=== PATIENT | female | born 1960 | race Hispanic/Latino ===

== ENCOUNTER 2017-08-16 21:03 | Emergency (ER) | payer OTHER ==
[2017-08-16 22:23] LABS: Basophils % (Auto) 0.8 % (0.0-1.8); Eosinophils % (Auto) 3.5 % (0.0-4.3); Hematocrit 38.4 % (30.3-42.9); Hemoglobin 13.2 gm/dl (10.1-14.3); Mean Corpuscular HGB Conc 35 % (30-34); Mean Corpuscular Hemoglobin 33 pg (28-32); Mean Corpuscular Volume 96 fl (79-97); Platelet Count 352 K/mm3 (140-440); Red Blood Count 4.01 M/mm3 (3.65-5.03); Red Cell Distribution Width 13.7 % (13.2-15.2); White Blood Count 10.3 K/mm3 (4.5-11.0)
[2017-08-16 22:28] LABS: Anion Gap 17 mmol/L; BUN/Creatinine Ratio 14; Blood Urea Nitrogen 10 mg/dL (7-17); Calcium 9.2 mg/dL (8.4-10.2); Carbon Dioxide 26 mmol/L (22-30); Chloride 103.2 mmol/L (98-107); Glucose 88 mg/dL (65-100); Potassium 4.2 mmol/L (3.6-5.0); Sodium 142 mmol/L (137-145)
[2017-08-16 22:48] LABS: Bacteria,Urine 1+ /HPF (Negative); Bilirubin,Urine NEG (Negative); Blood,Urine SM (Negative); Ketones,Urine NEG (Negative); Leukocyte Esterase,Urine MOD (Negative); Mucus,Urine FEW /HPF; Nitrite,Urine NEG (Negative); Protein,Urine <15 mg/dL mg/dL (Negative)
[2017-08-16] MEDS ORDERED: ZOFRAN IV ONE (23:41)
[2017-08-16] MEDS ORDERED: TORADOL IV ONE (23:41)
--- NOTE | 2017-08-16 23:45 | Emergency Department Report ---
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 SHE HAS NOT ACTUALLY VOMITED. SHE HAS NO CHEST PAIN, NO FEVER BUT ADMITS TO BODY ACHES. - Related Data Home Medications Medication Instructions Recorded Confirmed Last Taken Aspirin EC [Aspirin Enteric Coated 81 mg PO QDAY 03/01/15 08/10/15 Unknown TAB] Previous Rx's Medication Instructions Recorded Last Taken Type Acetaminophen/Codeine [Tylenol #3] 1 tab PO Q6H PRN #20 tab 11/14/15 Unknown Rx Cyclobenzaprine [Flexeril] 10 mg PO TID PRN #20 tablet 11/14/15 Unknown Rx Naproxen [Naprosyn TAB] 500 mg PO BID #30 tablet 11/14/15 Unknown Rx Azithromycin [Zithromax Z-YUMIKO] 250 mg PO QDAY #6 tablet 03/06/16 Unknown Rx Ibuprofen [Motrin] 800 mg PO Q8HR PRN #10 tablet 03/06/16 Unknown Rx Promethazine /Codeine 5 ml PO Q6H PRN #90 ml 03/06/16 Unknown Rx [Phenergan/Codeine 6.25-10 mg/5Ml] Cyclobenzaprine HCl [Flexeril 5 MG 5 mg PO TID #20 tab 05/18/16 Unknown Rx TAB] Ibuprofen [Motrin 800 MG tab] 800 mg PO Q8HR PRN #20 tablet 05/18/16 Unknown Rx ALBUTEROL Inhaler [Proair] 2 puff IH QID PRN #1 inhalation 08/17/17 Unknown Rx Levofloxacin [Levaquin] 750 mg PO QDAY #7 tablet 08/17/17 Unknown Rx Allergies Allergy/AdvReac Type Severity Reaction Status Date / Time ampicillin Allergy Itching Verified 05/10/15 20:17 ED Review of Systems ROS: Stated complaint: BODYACHES; DIZZINESS Other details as noted in HPI Constitutional: denies: chills, fever Eyes: denies: eye pain, eye discharge, vision change ENT: throat pain. denies: ear pain Respiratory: denies: cough, shortness of breath, wheezing Cardiovascular: denies: chest pain, palpitations Endocrine: no symptoms reported Gastrointestinal: nausea. denies: abdominal pain, vomiting, diarrhea Genitourinary: denies: urgency, dysuria, discharge Musculoskeletal: arthralgia, myalgia. denies: joint swelling Skin: denies: rash, lesions Neurological: denies: headache, weakness, paresthesias Psychiatric: denies: anxiety, depression Hematological/Lymphatic: denies: easy bleeding, easy bruising ED Past Medical Hx - Past Medical History Hx CVA: Yes (2009) Hx Congestive Heart Failure: No Hx Diabetes: No Hx Arthritis: Yes Hx Headaches / Migraines: Yes Hx Psychiatric Treatment: Yes (depression) Hx Asthma: No Hx COPD: No Hx HIV: No - Surgical History Hx Appendectomy: Yes Additional Surgical History: hysterectomy, left ankle surgery, left carotid endarterectomy - Social History Smoking Status: Current Every Day Smoker Substance Use Type: None - Medications Home Medications: Home Medications Medication Instructions Recorded Confirmed Last Taken Type Aspirin EC [Aspirin Enteric Coated 81 mg PO QDAY 03/01/15 08/10/15 Unknown History TAB] Acetaminophen/Codeine [Tylenol #3] 1 tab PO Q6H PRN #20 tab 11/14/15 Unknown Rx Cyclobenzaprine [Flexeril] 10 mg PO TID PRN #20 tablet 11/14/15 Unknown Rx Naproxen [Naprosyn TAB] 500 mg PO BID #30 tablet 11/14/15 Unknown Rx Azithromycin [Zithromax Z-YUMIKO] 250 mg PO QDAY #6 tablet 03/06/16 Unknown Rx Ibuprofen [Motrin] 800 mg PO Q8HR PRN #10 tablet 03/06/16 Unknown Rx Promethazine /Codeine 5 ml PO Q6H PRN #90 ml 03/06/16 Unknown Rx [Phenergan/Codeine 6.25-10 mg/5Ml] Cyclobenzaprine HCl [Flexeril 5 MG 5 mg PO TID #20 tab 05/18/16 Unknown Rx TAB] Ibuprofen [Motrin 800 MG tab] 800 mg PO Q8HR PRN #20 tablet 05/18/16 Unknown Rx ALBUTEROL Inhaler [Proair] 2 puff IH QID PRN #1 inhalation 08/17/17 Unknown Rx Levofloxacin [Levaquin] 750 mg PO QDAY #7 tablet 08/17/17 Unknown Rx ED Physical Exam - General Limitations: No Limitations General appearance: alert, in no apparent distress - Head Head exam: Present: atraumatic, normocephalic - Eye Eye exam: Present: normal appearance - ENT ENT exam: Present: mucous membranes moist - Neck Neck exam: Present: normal inspection, full ROM - Respiratory Respiratory exam: Present: normal lung sounds bilaterally. Absent: respiratory distress, wheezes - Cardiovascular Cardiovascular Exam: Present: regular rate, normal rhythm, normal heart sounds. Absent: systolic murmur, diastolic murmur, rubs, gallop - GI/Abdominal GI/Abdominal exam: Present: soft, normal bowel sounds. Absent: distended, tenderness, guarding - Rectal Rectal exam: Present: deferred - Extremities Exam Extremities exam: Present: normal inspection, full ROM - Back Exam Back exam: Present: normal inspection, full ROM - Neurological Exam Neurological exam: Present: alert, oriented X3, CN II-XII intact - Psychiatric Psychiatric exam: Present: normal affect, normal mood - Skin Skin exam: Present: warm, dry, intact, normal color. Absent: rash ED Course Vital Signs 08/16/17 08/17/17 08/17/17 21:12 00:30 00:31 Temperature 98 F 98 F Pulse Rate 74 98 H Respiratory 18 18 18 Rate Blood Pressure 139/82 Blood Pressure 130/76 [Left] O2 Sat by Pulse 100 96 Oximetry - Reevaluation(s) Reevaluation #1: 08/17/17 01:31 FLU STILL UNCOLLECTED ED Medical Decision Making - Lab Data Result diagrams: 08/16/17 21:29 08/16/17 21:29 - Radiology Data Radiology results: pending (CXR; NEGATIVE), image reviewed Critical care attestation.: If time is entered above; I have spent that time in minutes in the direct care of this critically ill patient, excluding procedure time. ED Disposition Clinical Impression: UTI (urinary tract infection) Acute bronchitis Qualifiers: Bronchitis organism: unspecified organism Qualified Code(s): J20.9 - Acute bronchitis, unspecified Disposition: DC-01 TO HOME OR SELFCARE Is pt being admited?: No Does the pt Need Aspirin: No Condition: Stable Instructions: Urinary Tract Infection in Women (ED), Acute Bronchitis (ED) Prescriptions: ALBUTEROL Inhaler [Proair] 2 puff IH QID PRN #1 inhalation PRN Reason: Shortness Of Breath Levofloxacin [Levaquin] 750 mg PO QDAY #7 tablet Referrals: PRIMARY CARE, [Primary Care Provider] - 3-5 Days [facility] [Outside] - 3-5 Days Time of Disposition: 02:20
[2017-08-17 00:53] LABS: Creatine Kinase MB 1.7 ng/mL (0.0-4.0)
[2017-08-17 00:54] LABS: Creatine Kinase 208 units/L (30-135)
[2017-08-17 02:36] VITALS: BP 137/89
--- NOTE | 2017-08-17 03:02 | XRay Report ---
FINAL REPORT EXAM: XR CHEST ROUTINE 2V HISTORY: COUGHING?PNEUMONIA TECHNIQUE: PA and lateral views of the chest were submitted. There are no previous studies available for comparison. FINDINGS: Heart size and mediastinum appear normal. The lungs are clear. Pleural fluid is not seen. The bones soft tissues are well maintained. IMPRESSION: No active chest disease.
== END 2017-08-17 02:10 | disposition home or self-care (01) ==
LOC: ED 21:03
DX: N39.0 Urinary tract infection, site not specified (principal); J40 Bronchitis, not specified as acute or chronic; M19.90 Unspecified osteoarthritis, unspecified site; G43.909 Migraine, unspecified, not intractable, without status migrainosus; F17.200 Nicotine dependence, unspecified, uncomplicated; Z86.73 Personal history of transient ischemic attack (TIA), and cerebral infarction without residual deficits; Z79.82 Long term (current) use of aspirin; Z88.1 Allergy status to other antibiotic agents
CPT/HCPCS: 36415; 71020; 80048; 81001; 82550; 82553; 84484; 85025; 87400; 96374; 96375; 99284; J1885; J2405

== ENCOUNTER 2017-09-01 12:50 | Emergency (ER) | payer OTHER ==
[2017-09-01 13:54] VITALS: BP 136/82
[2017-09-01 15:00] LABS: Urine Drugs of Abuse Note Disclamer
[2017-09-01 15:07] LABS: Bacteria,Urine 1+ /HPF (Negative)
[2017-09-01 15:13] LABS: Bilirubin,Urine NEG (Negative); Blood,Urine NEG (Negative); Ketones,Urine NEG (Negative); Leukocyte Esterase,Urine SM (Negative); Nitrite,Urine NEG (Negative); Protein,Urine <15 mg/dL mg/dL (Negative); Urobilinogen,Urine < 2.0 mg/dL (<2.0)
[2017-09-01] MEDS ORDERED: TORADOL IM ONE (17:13)
--- NOTE | 2017-09-01 17:13 | Emergency Department Report ---
ED General Adult HPI - General Chief complaint: Pain General Stated complaint: KNEE PAIN Time Seen by Provider: 09/01/17 16:13 Source: patient Mode of arrival: Ambulatory Limitations: No Limitations - History of Present Illness Initial comments: Patient here complaining in that she has continued ongoing chronic pain to her back, neck, elbows, legs, knees with occasional tingling . Patient has chronic neuropathy and she says she has very bad arthritis with osteoporosis. She said she started having pain a couple days it's been getting worse pain is 10 out of 10 generalized to her joints. Denies any trauma. Patient was here on 2016 and treated for urinary tract infection which she says she took all the medication that she was given for 7 days. Denies any urinary burning, frequency or urgency. Denies any nausea or vomiting. Denies any fever or chills. Pain is 10 out of 10 to joints and aching. Better with resting. Worse with moving around. She has no fever or chills. MD Complaint: generalized aching Onset/Timin -: days(s) Location: back, left, right, upper extremity, lower extremity Radiation: non-radiation Severity scale (0 -10): 10 Quality: aching Consistency: constant Improves with: immobilization, rest Worsens with: movement Associated Symptoms: denies: confusion, chest pain, cough, diaphoresis, fever/ chills, headaches, loss of appetite, malaise, nausea/vomiting, rash, seizure, shortness of breath, syncope, weakness Treatments Prior to Arrival: none - Related Data Home Medications Medication Instructions Recorded Confirmed Last Taken Aspirin EC [Aspirin Enteric Coated 81 mg PO QDAY 03/01/15 08/10/15 Unknown TAB] Previous Rx's Medication Instructions Recorded Last Taken Type Acetaminophen/Codeine [Tylenol #3] 1 tab PO Q6H PRN #20 tab 11/14/15 Unknown Rx Cyclobenzaprine [Flexeril] 10 mg PO TID PRN #20 tablet 11/14/15 Unknown Rx Naproxen [Naprosyn TAB] 500 mg PO BID #30 tablet 11/14/15 Unknown Rx Azithromycin [Zithromax Z-YUMIKO] 250 mg PO QDAY #6 tablet 03/06/16 Unknown Rx Ibuprofen [Motrin] 800 mg PO Q8HR PRN #10 tablet 03/06/16 Unknown Rx Promethazine /Codeine 5 ml PO Q6H PRN #90 ml 03/06/16 Unknown Rx [Phenergan/Codeine 6.25-10 mg/5Ml] Cyclobenzaprine HCl [Flexeril 5 MG 5 mg PO TID #20 tab 05/18/16 Unknown Rx TAB] Ibuprofen [Motrin 800 MG tab] 800 mg PO Q8HR PRN #20 tablet 05/18/16 Unknown Rx ALBUTEROL Inhaler [Proair] 2 puff IH QID PRN #1 inhalation 08/17/17 Unknown Rx Levofloxacin [Levaquin] 750 mg PO QDAY #7 tablet 08/17/17 Unknown Rx Nitrofurantoin Monohyd/M-Cryst 100 mg PO Q12H 3 Days #6 capsule 09/01/17 Unknown Rx [Macrobid 100 mg Capsule] traMADol [Ultram] 50 mg PO Q6HR PRN 3 Days #12 tablet 09/01/17 Unknown Rx Allergies Allergy/AdvReac Type Severity Reaction Status Date / Time ampicillin Allergy Itching Verified 05/10/15 20:17 ED Review of Systems ROS: Stated complaint: KNEE PAIN Other details as noted in HPI Comment: All other systems reviewed and negative Constitutional: no symptoms reported Respiratory: no symptoms reported Cardiovascular: denies: chest pain, palpitations, dyspnea on exertion, orthopnea , edema, syncope, paroxysmal nocturnal dyspnea Endocrine: no symptoms reported Gastrointestinal: denies: abdominal pain, nausea, vomiting, diarrhea Genitourinary: denies: urgency, dysuria, frequency, hematuria, discharge, abnormal menses Musculoskeletal: back pain, arthralgia. denies: joint swelling, myalgia Skin: denies: rash, lesions, pruritus Neurological: paresthesias. denies: headache, weakness, numbness, confusion, abnormal gait, vertigo ED Past Medical Hx - Past Medical History Previous Medical History?: Yes Hx CVA: Yes (2009) Hx Congestive Heart Failure: No Hx Diabetes: No Hx Arthritis: Yes Hx Headaches / Migraines: Yes Hx Psychiatric Treatment: Yes (depression) Hx Asthma: No Hx COPD: No Hx HIV: No - Surgical History Past Surgical History?: Yes Hx Appendectomy: Yes Additional Surgical History: hysterectomy, left ankle surgery, left carotid endarterectomy - Family History Family history: hypertension - Social History Smoking Status: Current Every Day Smoker Substance Use Type: None - Medications Home Medications: Home Medications Medication Instructions Recorded Confirmed Last Taken Type Aspirin EC [Aspirin Enteric Coated 81 mg PO QDAY 03/01/15 08/10/15 Unknown History TAB] Acetaminophen/Codeine [Tylenol #3] 1 tab PO Q6H PRN #20 tab 11/14/15 Unknown Rx Cyclobenzaprine [Flexeril] 10 mg PO TID PRN #20 tablet 11/14/15 Unknown Rx Naproxen [Naprosyn TAB] 500 mg PO BID #30 tablet 11/14/15 Unknown Rx Azithromycin [Zithromax Z-YUMIKO] 250 mg PO QDAY #6 tablet 03/06/16 Unknown Rx Ibuprofen [Motrin] 800 mg PO Q8HR PRN #10 tablet 03/06/16 Unknown Rx Promethazine /Codeine 5 ml PO Q6H PRN #90 ml 03/06/16 Unknown Rx [Phenergan/Codeine 6.25-10 mg/5Ml] Cyclobenzaprine HCl [Flexeril 5 MG 5 mg PO TID #20 tab 05/18/16 Unknown Rx TAB] Ibuprofen [Motrin 800 MG tab] 800 mg PO Q8HR PRN #20 tablet 05/18/16 Unknown Rx ALBUTEROL Inhaler [Proair] 2 puff IH QID PRN #1 inhalation 08/17/17 Unknown Rx Levofloxacin [Levaquin] 750 mg PO QDAY #7 tablet 08/17/17 Unknown Rx Nitrofurantoin Monohyd/M-Cryst 100 mg PO Q12H 3 Days #6 capsule 09/01/17 Unknown Rx [Macrobid 100 mg Capsule] traMADol [Ultram] 50 mg PO Q6HR PRN 3 Days #12 tablet 09/01/17 Unknown Rx ED Physical Exam - General Limitations: No Limitations General appearance: alert, in no apparent distress - Head Head exam: Present: atraumatic, normocephalic, normal inspection - Eye Eye exam: Present: normal appearance, PERRL, EOMI. Absent: periorbital swelling , periorbital tenderness Pupils: Present: normal accommodation - ENT ENT exam: Present: normal exam, normal orophraynx, mucous membranes moist - Neck Neck exam: Present: normal inspection, full ROM, other (no C-spine tenderness). Absent: tenderness, meningismus, lymphadenopathy, thyromegaly - Respiratory Respiratory exam: Present: normal lung sounds bilaterally. Absent: respiratory distress, chest wall tenderness, accessory muscle use - Cardiovascular Cardiovascular Exam: Present: regular rate, normal rhythm, normal heart sounds. Absent: systolic murmur, diastolic murmur - GI/Abdominal GI/Abdominal exam: Present: soft, normal bowel sounds. Absent: distended, tenderness, guarding, rebound, rigid, organomegaly, mass, bruit, pulsatile mass , hernia - Extremities Exam Extremities exam: Present: normal inspection, full ROM, normal capillary refill , other (MSK: Strength 5/5 in all extremities. No joint deformity or crepitus. Normal inspection. Full range of motion to all extremities). Absent: tenderness, pedal edema, joint swelling, calf tenderness - Back Exam Back exam: Present: normal inspection, full ROM, other (patient ambulates without any difficulties). Absent: tenderness, CVA tenderness (R), CVA tenderness (L), muscle spasm, paraspinal tenderness, vertebral tenderness, rash noted - Neurological Exam Neurological exam: Present: alert, oriented X3, normal gait, reflexes normal. Absent: motor sensory deficit - Psychiatric Psychiatric exam: Present: normal affect, normal mood - Skin Skin exam: Present: warm, dry, intact, normal color. Absent: rash ED Course Vital Signs 09/01/17 13:49 Temperature 97.7 F Pulse Rate 87 Respiratory 18 Rate Blood Pressure 136/82 O2 Sat by Pulse 99 Oximetry - Reevaluation(s) Reevaluation #1: 09/01/17 18:00 given Toradol 30 mg IM in emergency room for generalized joint pain. Her family members here so she will be given additional Percocet 5/325 2 tablets. ED Medical Decision Making - Lab Data Lab Results 09/01/17 09/01/17 Range/Units 14:39 14:39 Urine Color Yellow (Yellow) Urine Turbidity Clear (Clear) Urine pH 6.0 (5.0-7.0) Ur Specific [place] 1.014 (1.003-1.030) Urine Protein <15 mg/dl (Negative) mg/dL Urine Glucose (UA) Neg (Negative) mg/dL Urine Ketones Neg (Negative) mg/dL Urine Blood Neg (Negative) Urine Nitrite Neg (Negative) Ur Reducing Substances Not Reportable Urine Bilirubin Neg (Negative) Urine Ictotest Not Reportable Urine Urobilinogen < 2.0 (<2.0) mg/dL Ur Leukocyte Esterase Sm (Negative) Urine WBC (Auto) 3.0 (0.0-6.0) /HPF Urine RBC (Auto) 1.0 (0.0-6.0) /HPF U Epithel Cells (Auto) 3.0 (0-13.0) /HPF Urine Bacteria (Auto) 1+ (Negative) /HPF Urine Opiates Screen Presumptive negative Urine Methadone Screen Presumptive negative Ur Barbiturates Screen Presumptive negative Ur Phencyclidine Scrn Presumptive negative Ur Amphetamines Screen Presumptive negative U Benzodiazepines Scrn Presumptive negative Urine Cocaine Screen Presumptive negative U Marijuana (THC) Screen Presumptive negative Drugs of Abuse Note Disclamer Urine culture pending - Medical Decision Making ED course: For management of her chronic pain. She says she has chronic arthritis and she is having a flareup and that she has osteoporosis. She was treated here on 08/17/2017 for urinary tract infection and she is asymptomatic at present but her urine shows that she has some bacteria and trace amount of leukocyte Estrace. Based on this I will treat her with Macrobid 3 days and I gave her Toradol 30 mg IM in emergency room. Her family member came and I gave her additional Percocet 5/325 2 tablets emergency room and discharged home with prescription for Ultram and Macrobid to follow up with her primary care physician to manage her chronic medical problems. This was discussed patient. I gave her results of urinalysis and told her that culture was sent. Patient discharged home with her family in stable condition and discharged home and referred to [facility] at her request for primary care. Critical care attestation.: If time is entered above; I have spent that time in minutes in the direct care of this critically ill patient, excluding procedure time. ED Disposition Clinical Impression: Acute cystitis without hematuria, Arthralgia of multiple sites, bilateral Disposition: DC-01 TO HOME OR SELFCARE Is pt being admited?: No Does the pt Need Aspirin: No Condition: Stable Instructions: Chronic Pain (ED), Osteoarthritis (ED), Urinary Tract Infection in Children (ED) Additional Instructions: follow-up with outside Medical Center as instructed Please increase your fluid intake Take Ultram for pain but please do not drive or operate heavy machinery as this medication causes drowsiness Take Macrobid for small bladder infection Prescriptions: Nitrofurantoin Monohyd/M-Cryst [Macrobid 100 mg Capsule] 100 mg PO Q12H 3 Days # 6 capsule traMADol [Ultram] 50 mg PO Q6HR PRN 3 Days #12 tablet PRN Reason: Pain Referrals: PRIMARY CARE,MD [Primary Care Provider] - 2-3 Days [facility] [Outside] - 2-3 Days Forms: Accompanied Note, Work/School Release Form(ED)
[2017-09-01] MEDS ORDERED: PERCOCET 5/325 PO ONE (18:19)
== END 2017-09-01 19:08 | disposition home or self-care (01) ==
LOC: ED 12:50
DX: N30.00 Acute cystitis without hematuria (principal); M25.562 Pain in left knee; M25.561 Pain in right knee; M25.522 Pain in left elbow; M25.521 Pain in right elbow; E11.40 Type 2 diabetes mellitus with diabetic neuropathy, unspecified; M19.90 Unspecified osteoarthritis, unspecified site; G43.909 Migraine, unspecified, not intractable, without status migrainosus; F17.200 Nicotine dependence, unspecified, uncomplicated; Z79.82 Long term (current) use of aspirin; Z86.73 Personal history of transient ischemic attack (TIA), and cerebral infarction without residual deficits; Z88.1 Allergy status to other antibiotic agents
CPT/HCPCS: 80307; 81001; 96372; 99283; J1885

== ENCOUNTER 2018-05-14 12:49 | Emergency (ER) | payer SELFPAY ==
[2018-05-14] MEDS ORDERED: TESSALON PERLES PO ONE (15:38)
--- NOTE | 2018-05-14 16:45 | Emergency Department Report ---
- General Chief Complaint: Upper Respiratory Infection Stated Complaint: SNEEZING,COUGHING,CHEST PAIN Time Seen by Provider: 05/14/18 15:38 Source: patient Mode of arrival: Ambulatory Limitations: No Limitations - History of Present Illness Initial Comments: This is a 57-year-old female nontoxic, well nourished in appearance, no acute signs of distress presents to the ED with c/o of productive cough, rhinorrhea, nasal congestion x3 days. Patient describes productive cough as yellow mucus production. Patient denies any sick contact. Patient denies any recent travels , long car, recent hospital stays. Patient denies any calf pain or calf tenderness. Patient denies any chest pain, short of breath, fever, chills, nausea, vomiting, hemoptysis, numbness, tingling, headache or stiff neck. Patient stated allergies to ampicillin. PMH includes DM, HTN. MD Complaint: cough, sore throat, rhinorrhea, nasal congestion -: days(s) (3) Severity: mild Consistency: constant Improves With: nothing Worsens With: nothing Associated Symptoms: rhinorrhea, nasal congestion, cough. denies: fever, chills , myalgias, diaphoresis, headache, sore throat, stiff neck, chest pain, shortness of breath, abdominal pain, nausea, vomiting, diarrhea, dysuria, rash, confusion, right sweats, weight loss, epistaxis, hoarseness, ear pain - Related Data Home Medications Medication Instructions Recorded Confirmed Last Taken Aspirin EC [Aspirin Enteric Coated 81 mg PO QDAY 03/01/15 08/10/15 Unknown TAB] Previous Rx's Medication Instructions Recorded Last Taken Type Acetaminophen/Codeine [Tylenol #3] 1 tab PO Q6H PRN #20 tab 11/14/15 Unknown Rx Cyclobenzaprine [Flexeril] 10 mg PO TID PRN #20 tablet 11/14/15 Unknown Rx Naproxen [Naprosyn TAB] 500 mg PO BID #30 tablet 11/14/15 Unknown Rx Azithromycin [Zithromax Z-YUMIKO] 250 mg PO QDAY #6 tablet 03/06/16 Unknown Rx Ibuprofen [Motrin] 800 mg PO Q8HR PRN #10 tablet 03/06/16 Unknown Rx Promethazine /Codeine 5 ml PO Q6H PRN #90 ml 03/06/16 Unknown Rx [Phenergan/Codeine 6.25-10 mg/5Ml] Cyclobenzaprine HCl [Flexeril 5 MG 5 mg PO TID #20 tab 05/18/16 Unknown Rx TAB] Ibuprofen [Motrin 800 MG tab] 800 mg PO Q8HR PRN #20 tablet 05/18/16 Unknown Rx ALBUTEROL Inhaler [Proair] 2 puff IH QID PRN #1 inhalation 08/17/17 Unknown Rx levoFLOXacin [Levaquin] 750 mg PO QDAY #7 tablet 08/17/17 Unknown Rx Nitrofurantoin Monohyd/M-Cryst 100 mg PO Q12H 3 Days #6 capsule 09/01/17 Unknown Rx [Macrobid 100 mg Capsule] traMADol [Ultram] 50 mg PO Q6HR PRN 3 Days #12 tablet 09/01/17 Unknown Rx Azithromycin [Zithromax Z-YUMIKO] 250 mg PO DAILY #6 tablet 05/14/18 Unknown Rx Benzonatate [Tessalon Perle] 100 mg PO Q8H PRN #20 capsule 05/14/18 Unknown Rx Loratadine [Claritin] 10 mg PO DAILY #30 tablet 05/14/18 Unknown Rx Allergies Allergy/AdvReac Type Severity Reaction Status Date / Time ampicillin Allergy Itching Verified 05/10/15 20:17 ED Review of Systems ROS: Stated complaint: SNEEZING,COUGHING,CHEST PAIN Other details as noted in HPI Constitutional: denies: chills, fever Eyes: denies: eye pain, eye discharge, vision change ENT: denies: ear pain, throat pain Respiratory: cough. denies: shortness of breath, wheezing Cardiovascular: denies: chest pain, palpitations Endocrine: no symptoms reported Gastrointestinal: denies: abdominal pain, nausea, diarrhea Genitourinary: denies: urgency, dysuria, discharge Musculoskeletal: denies: back pain, joint swelling, arthralgia Skin: denies: rash, lesions Neurological: denies: headache, weakness, paresthesias Psychiatric: denies: anxiety, depression Hematological/Lymphatic: denies: easy bleeding, easy bruising ED Past Medical Hx - Past Medical History Hx CVA: Yes (2009) Hx Congestive Heart Failure: No Hx Diabetes: No Hx Arthritis: Yes Hx Headaches / Migraines: Yes Hx Psychiatric Treatment: Yes (depression) Hx Asthma: No Hx COPD: No Hx HIV: No - Surgical History Hx Appendectomy: Yes Additional Surgical History: hysterectomy, left ankle surgery, left carotid endarterectomy - Social History Smoking Status: Current Every Day Smoker Substance Use Type: None - Medications Home Medications: Home Medications Medication Instructions Recorded Confirmed Last Taken Type Aspirin EC [Aspirin Enteric Coated 81 mg PO QDAY 03/01/15 08/10/15 Unknown History TAB] Acetaminophen/Codeine [Tylenol #3] 1 tab PO Q6H PRN #20 tab 11/14/15 Unknown Rx Cyclobenzaprine [Flexeril] 10 mg PO TID PRN #20 tablet 11/14/15 Unknown Rx Naproxen [Naprosyn TAB] 500 mg PO BID #30 tablet 11/14/15 Unknown Rx Azithromycin [Zithromax Z-YUMIKO] 250 mg PO QDAY #6 tablet 03/06/16 Unknown Rx Ibuprofen [Motrin] 800 mg PO Q8HR PRN #10 tablet 03/06/16 Unknown Rx Promethazine /Codeine 5 ml PO Q6H PRN #90 ml 03/06/16 Unknown Rx [Phenergan/Codeine 6.25-10 mg/5Ml] Cyclobenzaprine HCl [Flexeril 5 MG 5 mg PO TID #20 tab 05/18/16 Unknown Rx TAB] Ibuprofen [Motrin 800 MG tab] 800 mg PO Q8HR PRN #20 tablet 05/18/16 Unknown Rx ALBUTEROL Inhaler [Proair] 2 puff IH QID PRN #1 inhalation 08/17/17 Unknown Rx levoFLOXacin [Levaquin] 750 mg PO QDAY #7 tablet 08/17/17 Unknown Rx Nitrofurantoin Monohyd/M-Cryst 100 mg PO Q12H 3 Days #6 capsule 09/01/17 Unknown Rx [Macrobid 100 mg Capsule] traMADol [Ultram] 50 mg PO Q6HR PRN 3 Days #12 tablet 09/01/17 Unknown Rx Azithromycin [Zithromax Z-YUMIKO] 250 mg PO DAILY #6 tablet 05/14/18 Unknown Rx Benzonatate [Tessalon Perle] 100 mg PO Q8H PRN #20 capsule 05/14/18 Unknown Rx Loratadine [Claritin] 10 mg PO DAILY #30 tablet 05/14/18 Unknown Rx ED Physical Exam - General Limitations: No Limitations General appearance: alert, in no apparent distress - Head Head exam: Present: atraumatic, normocephalic - Eye Eye exam: Present: normal appearance Pupils: Present: normal accommodation - ENT ENT exam: Present: normal exam, mucous membranes moist - Neck Neck exam: Present: normal inspection, full ROM. Absent: tenderness, meningismus, lymphadenopathy - Respiratory Respiratory exam: Present: normal lung sounds bilaterally. Absent: respiratory distress, wheezes, rales, rhonchi, stridor, chest wall tenderness, accessory muscle use, decreased breath sounds, prolonged expiratory - Cardiovascular Cardiovascular Exam: Present: regular rate, normal rhythm, normal heart sounds. Absent: bradycardia, tachycardia, irregular rhythm, systolic murmur, diastolic murmur, rubs, gallop - GI/Abdominal GI/Abdominal exam: Present: soft, normal bowel sounds. Absent: distended, tenderness, guarding, rebound, rigid, diminished bowel sounds - Extremities Exam Extremities exam: Present: normal inspection, full ROM, normal capillary refill. Absent: tenderness - Back Exam Back exam: Present: normal inspection, full ROM. Absent: tenderness, CVA tenderness (R), CVA tenderness (L), muscle spasm, paraspinal tenderness, vertebral tenderness, rash noted - Neurological Exam Neurological exam: Present: alert, oriented X3, normal gait - Psychiatric Psychiatric exam: Present: normal affect, normal mood - Skin Skin exam: Present: warm, dry, intact, normal color. Absent: rash ED Course Vital Signs 05/14/18 13:19 Temperature 97.9 F Pulse Rate 82 Respiratory 16 Rate Blood Pressure 156/92 O2 Sat by Pulse 96 Oximetry - Reevaluation(s) Reevaluation #1: 05/14/18 16:43 Patient is speaking in full sentences with no signs of distress noted. ED Medical Decision Making - Medical Decision Making This is a 57-year-old female that presents with bronchitis. Patient is stable and was examined by me. Chest x-ray has been obtained and dictated by radiologist with normal exam. Patient is notified of x-ray results with no questions noted. Due to patient having symptoms of upper respiratory infection and worsening I will treat patient empirically with zpak. Patient was instructed to increase hydration, rest and take Motrin for fever episodes. Patient received tesslone perrls in the ED. Vitals stable. Patient is nonfebrile and normal heart rate. Patient was instructed Follow-up with a primary care doctor in 3-5 days or if symptoms worsen and continue return to emergency room as soon as possible. At time time of discharge, the patient does not seem toxic or ill in appearance. No acute signs of distress noted. Patient agrees to discharge treatment plan of care. No further questions noted by the patient. Critical care attestation.: If time is entered above; I have spent that time in minutes in the direct care of this critically ill patient, excluding procedure time. ED Disposition Clinical Impression: Bronchitis Disposition: DC- TO HOME OR SELFCARE Is pt being admited?: No Does the pt Need Aspirin: No Condition: Stable Instructions: Acute Bronchitis (ED) Additional Instructions: Follow-up with a primary care doctor in 3-5 days or if symptoms worsen and continue return to emergency room as soon as possible. Prescriptions: Azithromycin [Zithromax Z-YUMIKO] 250 mg PO DAILY #6 tablet Benzonatate [Tessalon Perle] 100 mg PO Q8H PRN #20 capsule PRN Reason: Cough Loratadine [Claritin] 10 mg PO DAILY #30 tablet Referrals: PRIMARY MD NANCY [Primary Care Provider] - 3-5 Days SHRUTHI MICHELE MD [Staff Physician] - 3-5 Days [facility] [Outside] - 3-5 Days [facility] [Outside] - 3-5 Days Forms: Work/School Release Form(ED)
--- NOTE | 2018-05-14 17:36 | XRay Report ---
FINAL REPORT EXAM: XR CHEST ROUTINE 2V HISTORY: cough TECHNIQUE: 2 view examination of the chest PRIORS: 08/16/2017 FINDINGS: Atherosclerotic change in the thoracic aorta. Degenerative change in the thoracic spine. There is no visible pulmonary consolidation, pleural effusion, or pneumothorax. Cardiac silhouette size is normal without vascular congestion. IMPRESSION: No evidence of acute cardiopulmonary disease
[2018-05-14 17:59] VITALS: BP 157/87
== END 2018-05-14 17:58 | disposition home or self-care (01) ==
LOC: ED 12:49
DX: J40 Bronchitis, not specified as acute or chronic (principal); M19.90 Unspecified osteoarthritis, unspecified site; G43.909 Migraine, unspecified, not intractable, without status migrainosus; F32.9 Major depressive disorder, single episode, unspecified; F17.200 Nicotine dependence, unspecified, uncomplicated; Z88.0 Allergy status to penicillin; Z86.73 Personal history of transient ischemic attack (TIA), and cerebral infarction without residual deficits; Z90.710 Acquired absence of both cervix and uterus
CPT/HCPCS: 71046; 93005; 93010; 99283

== ENCOUNTER 2018-11-17 19:25 | Emergency (ER) | payer OTHER ==
[2018-11-17 20:24] VITALS: BP 104/71
--- NOTE | 2018-11-17 20:24 | Emergency Department Report ---
Blank Doc - Documentation Documentation: This is a 57-year-old female that presents with right sided tongue pain. Stated cut herself by a broken tooth. This initial assessment diagnostic orders/clinical plan/treatment(s) is/are subject to change based on patient's health status, clinical progression and re-assessment by fellow clinical providers in the ED. Further treatment and workup at subsequent clinical providers discretion. Patient/guardians urged not to elope from ED s their condition may be serious if not clinically assessed and managed. Initial orders include: 1-Patient sent to [facility] for further evaluation and treatment
--- NOTE | 2018-11-18 01:42 | Emergency Department Report ---
ED ENT HPI - General Chief complaint: Dental/Oral Stated complaint: TOOTHACHE Time Seen by Provider: 11/17/18 20:22 Source: patient Mode of arrival: Ambulatory Limitations: No Limitations - History of Present Illness Initial comments: 57-year-old female presents to the emergency room for bottom right tooth chipped and patient is now having pain to the tongue where it has been rubbing against her tooth. Patient reports that she's tried using [id number] benzocaine liquid oral gel mouthwash and ibuprofen without much relief. Patient reports a past medical history arthritis CVA in 2009 depression. MD complaint: other (sore tongue) -: days(s) (3) Location: other (tongue) Severity: severe Severity scale (0 -10): 10 Quality: burning, constant Consistency: constant Improves with: none Worsens with: swallowing, eating - Related Data Home Medications Medication Instructions Recorded Confirmed Last Taken Aspirin EC [Aspirin Enteric Coated 81 mg PO QDAY 03/01/15 08/10/15 Unknown TAB] Previous Rx's Medication Instructions Recorded Last Taken Type Acetaminophen/Codeine [Tylenol #3] 1 tab PO Q6H PRN #20 tab 11/14/15 Unknown Rx Cyclobenzaprine [Flexeril] 10 mg PO TID PRN #20 tablet 11/14/15 Unknown Rx Naproxen [Naprosyn TAB] 500 mg PO BID #30 tablet 11/14/15 Unknown Rx Azithromycin [Zithromax Z-YUMIKO] 250 mg PO QDAY #6 tablet 03/06/16 Unknown Rx Ibuprofen [Motrin] 800 mg PO Q8HR PRN #10 tablet 03/06/16 Unknown Rx Promethazine /Codeine 5 ml PO Q6H PRN #90 ml 03/06/16 Unknown Rx [Phenergan/Codeine 6.25-10 mg/5Ml] Cyclobenzaprine HCl [Flexeril 5 MG 5 mg PO TID #20 tab 05/18/16 Unknown Rx TAB] Ibuprofen [Motrin 800 MG tab] 800 mg PO Q8HR PRN #20 tablet 05/18/16 Unknown Rx ALBUTEROL Inhaler (OR & NICU) 2 puff IH QID PRN #1 inhalation 08/17/17 Unknown Rx [Proair] levoFLOXacin [Levaquin] 750 mg PO QDAY #7 tablet 08/17/17 Unknown Rx Nitrofurantoin Monohyd/M-Cryst 100 mg PO Q12H 3 Days #6 capsule 09/01/17 Unknown Rx [Macrobid 100 mg Capsule] Azithromycin [Zithromax Z-YUMIKO] 250 mg PO DAILY #6 tablet 05/14/18 Unknown Rx Benzonatate [Tessalon Perle] 100 mg PO Q8H PRN #20 capsule 05/14/18 Unknown Rx Loratadine [Claritin] 10 mg PO DAILY #30 tablet 05/14/18 Unknown Rx Ibuprofen [Motrin] 600 mg PO Q8H PRN #20 tablet 08/04/18 Unknown Rx traMADol [Ultram 50 MG tab] 50 mg PO Q6HR PRN 3 Days #12 tablet 11/18/18 Unknown Rx Allergies Allergy/AdvReac Type Severity Reaction Status Date / Time ampicillin Allergy Itching Verified 05/10/15 20:17 ED Dental HPI - General Chief complaint: Dental/Oral Stated complaint: TOOTHACHE Time Seen by Provider: 11/17/18 20:22 Source: patient Mode of arrival: Ambulatory Limitations: No Limitations - Related Data Home Medications Medication Instructions Recorded Confirmed Last Taken Aspirin EC [Aspirin Enteric Coated 81 mg PO QDAY 03/01/15 08/10/15 Unknown TAB] Previous Rx's Medication Instructions Recorded Last Taken Type Acetaminophen/Codeine [Tylenol #3] 1 tab PO Q6H PRN #20 tab 11/14/15 Unknown Rx Cyclobenzaprine [Flexeril] 10 mg PO TID PRN #20 tablet 11/14/15 Unknown Rx Naproxen [Naprosyn TAB] 500 mg PO BID #30 tablet 11/14/15 Unknown Rx Azithromycin [Zithromax Z-YUMIKO] 250 mg PO QDAY #6 tablet 03/06/16 Unknown Rx Ibuprofen [Motrin] 800 mg PO Q8HR PRN #10 tablet 03/06/16 Unknown Rx Promethazine /Codeine 5 ml PO Q6H PRN #90 ml 03/06/16 Unknown Rx [Phenergan/Codeine 6.25-10 mg/5Ml] Cyclobenzaprine HCl [Flexeril 5 MG 5 mg PO TID #20 tab 05/18/16 Unknown Rx TAB] Ibuprofen [Motrin 800 MG tab] 800 mg PO Q8HR PRN #20 tablet 05/18/16 Unknown Rx ALBUTEROL Inhaler (OR & NICU) 2 puff IH QID PRN #1 inhalation 08/17/17 Unknown Rx [Proair] levoFLOXacin [Levaquin] 750 mg PO QDAY #7 tablet 08/17/17 Unknown Rx Nitrofurantoin Monohyd/M-Cryst 100 mg PO Q12H 3 Days #6 capsule 09/01/17 Unknown Rx [Macrobid 100 mg Capsule] Azithromycin [Zithromax Z-YUMIKO] 250 mg PO DAILY #6 tablet 05/14/18 Unknown Rx Benzonatate [Tessalon Perle] 100 mg PO Q8H PRN #20 capsule 05/14/18 Unknown Rx Loratadine [Claritin] 10 mg PO DAILY #30 tablet 05/14/18 Unknown Rx Ibuprofen [Motrin] 600 mg PO Q8H PRN #20 tablet 08/04/18 Unknown Rx traMADol [Ultram 50 MG tab] 50 mg PO Q6HR PRN 3 Days #12 tablet 11/18/18 Unknown Rx Allergies Allergy/AdvReac Type Severity Reaction Status Date / Time ampicillin Allergy Itching Verified 05/10/15 20:17 ED Review of Systems ROS: Stated complaint: TOOTHACHE Other details as noted in HPI Comment: All other systems reviewed and negative Constitutional: denies: chills, fever Eyes: denies: eye pain, eye discharge, vision change ENT: other (tongue pain) ED Past Medical Hx - Past Medical History Hx CVA: Yes (2009) Hx Congestive Heart Failure: No Hx Diabetes: No Hx Arthritis: Yes Hx Headaches / Migraines: Yes Hx Psychiatric Treatment: Yes (depression) Hx Asthma: No Hx COPD: No Hx HIV: No - Surgical History Hx Appendectomy: Yes Additional Surgical History: hysterectomy, left ankle surgery, left carotid endarterectomy - Social History Smoking Status: Current Every Day Smoker Substance Use Type: None - Medications Home Medications: Home Medications Medication Instructions Recorded Confirmed Last Taken Type Aspirin EC [Aspirin Enteric Coated 81 mg PO QDAY 03/01/15 08/10/15 Unknown History TAB] Acetaminophen/Codeine [Tylenol #3] 1 tab PO Q6H PRN #20 tab 11/14/15 Unknown Rx Cyclobenzaprine [Flexeril] 10 mg PO TID PRN #20 tablet 11/14/15 Unknown Rx Naproxen [Naprosyn TAB] 500 mg PO BID #30 tablet 11/14/15 Unknown Rx Azithromycin [Zithromax Z-YUMIKO] 250 mg PO QDAY #6 tablet 03/06/16 Unknown Rx Ibuprofen [Motrin] 800 mg PO Q8HR PRN #10 tablet 03/06/16 Unknown Rx Promethazine /Codeine 5 ml PO Q6H PRN #90 ml 03/06/16 Unknown Rx [Phenergan/Codeine 6.25-10 mg/5Ml] Cyclobenzaprine HCl [Flexeril 5 MG 5 mg PO TID #20 tab 05/18/16 Unknown Rx TAB] Ibuprofen [Motrin 800 MG tab] 800 mg PO Q8HR PRN #20 tablet 05/18/16 Unknown Rx ALBUTEROL Inhaler (OR & NICU) 2 puff IH QID PRN #1 inhalation 08/17/17 Unknown Rx [Proair] levoFLOXacin [Levaquin] 750 mg PO QDAY #7 tablet 08/17/17 Unknown Rx Nitrofurantoin Monohyd/M-Cryst 100 mg PO Q12H 3 Days #6 capsule 09/01/17 Unknown Rx [Macrobid 100 mg Capsule] Azithromycin [Zithromax Z-YUMIKO] 250 mg PO DAILY #6 tablet 05/14/18 Unknown Rx Benzonatate [Tessalon Perle] 100 mg PO Q8H PRN #20 capsule 05/14/18 Unknown Rx Loratadine [Claritin] 10 mg PO DAILY #30 tablet 05/14/18 Unknown Rx Ibuprofen [Motrin] 600 mg PO Q8H PRN #20 tablet 08/04/18 Unknown Rx traMADol [Ultram 50 MG tab] 50 mg PO Q6HR PRN 3 Days #12 tablet 11/18/18 Unknown Rx ED Physical Exam - General Limitations: No Limitations General appearance: alert, in no apparent distress - Head Head exam: Present: atraumatic, normocephalic - Eye Eye exam: Present: EOMI - ENT ENT exam: Present: mucous membranes moist - Expanded ENT Exam Expanded Teeth exam: Present: other (right lateral tongue near the buccal mucosa has an ulcer nonerythematous non-edematous does not appear to be infected.) - Neck Neck exam: Present: normal inspection, full ROM. Absent: tenderness - Neurological Exam Neurological exam: Present: alert, oriented X3 - Psychiatric Psychiatric exam: Present: normal affect, normal mood - Skin Skin exam: Present: warm, dry, intact, normal color. Absent: rash ED Course Vital Signs 11/17/18 20:23 Temperature 98.4 F Pulse Rate 95 H Respiratory 18 Rate Blood Pressure 104/71 O2 Sat by Pulse 97 Oximetry ED Medical Decision Making - Medical Decision Making Patient has been evaluated by this provider in fast track. We'll discharge patient home on tramadol since she drove. Patient is to follow-up with the dentist continue using the benzocaine in oral chill mouthwash as needed she can take [id number] Tylenol or Motrin with tramadol. Patient is to follow-up with a dentist in the next 2-3 days. Critical care attestation.: If time is entered above; I have spent that time in minutes in the direct care of this critically ill patient, excluding procedure time. ED Disposition Clinical Impression: Traumatic ulceration of tongue Disposition: DC- TO HOME OR SELFCARE Is pt being admited?: No Does the pt Need Aspirin: No Condition: Stable Additional Instructions: Please take pain medication as needed. Continue taking [id number] anesthetics. Recommended to follow up with a dentist I will refer her to several below in the community. Prescriptions: traMADol [Ultram 50 MG tab] 50 mg PO Q6HR PRN 3 Days #12 tablet PRN Reason: Pain Referrals: RICKIE ALVARENGA MD [Primary Care Provider] - 3-5 Days [facility] [Outside] - 3-5 Days [facility] [Outside] - 3-5 Days Forms: Work/School Release Form(ED)
[2018-11-18] MEDS ORDERED: ULTRAM PO ONE (02:12)
[2018-11-18] MEDS ORDERED: ULTRAM ONE (02:14)
== END 2018-11-18 02:14 | disposition home or self-care (01) ==
LOC: ED 19:25
DX: K14.0 Glossitis (principal); G43.909 Migraine, unspecified, not intractable, without status migrainosus; F32.9 Major depressive disorder, single episode, unspecified; F17.200 Nicotine dependence, unspecified, uncomplicated; Z90.710 Acquired absence of both cervix and uterus; Z86.73 Personal history of transient ischemic attack (TIA), and cerebral infarction without residual deficits; Z88.1 Allergy status to other antibiotic agents; Z79.899 Other long term (current) drug therapy
CPT/HCPCS: 99282

== ENCOUNTER 2018-12-30 11:23 | Emergency (ER) | payer SELFPAY ==
[2018-12-30 11:29] VITALS: BP 108/81
--- NOTE | 2018-12-30 13:00 | Emergency Department Report ---
ED General Adult HPI - General Chief complaint: Eye Problems Stated complaint: LEFT EYE PAIN/ITCHY/REDNESS/BLURRY Time Seen by Provider: 12/30/18 12:31 Source: patient Mode of arrival: Ambulatory Limitations: No Limitations - History of Present Illness Initial comments: Patient presents to the emergency department with chief complaint of eye irritation from pollen. Patient complains of eyes itching really bad as well as being red. Patient has not taken any [id number] medication for her symptoms. Patient worsens or she rise in a car with windows down because she does not have her condition -: Gradual Location: eyes Severity scale (0 -10): 1 Quality: burning Consistency: constant Improves with: none Worsens with: none Associated Symptoms: denies other symptoms Treatments Prior to Arrival: none - Related Data Home Medications Medication Instructions Recorded Confirmed Last Taken Aspirin EC [Aspirin Enteric Coated 81 mg PO QDAY 03/01/15 08/10/15 Unknown TAB] Previous Rx's Medication Instructions Recorded Last Taken Type Acetaminophen/Codeine [Tylenol #3] 1 tab PO Q6H PRN #20 tab 11/14/15 Unknown Rx Cyclobenzaprine [Flexeril] 10 mg PO TID PRN #20 tablet 11/14/15 Unknown Rx Naproxen [Naprosyn TAB] 500 mg PO BID #30 tablet 11/14/15 Unknown Rx Azithromycin [Zithromax Z-YUMIKO] 250 mg PO QDAY #6 tablet 03/06/16 Unknown Rx Ibuprofen [Motrin] 800 mg PO Q8HR PRN #10 tablet 03/06/16 Unknown Rx Promethazine /Codeine 5 ml PO Q6H PRN #90 ml 03/06/16 Unknown Rx [Phenergan/Codeine 6.25-10 mg/5Ml] Cyclobenzaprine HCl [Flexeril 5 MG 5 mg PO TID #20 tab 05/18/16 Unknown Rx TAB] Ibuprofen [Motrin 800 MG tab] 800 mg PO Q8HR PRN #20 tablet 05/18/16 Unknown Rx ALBUTEROL Inhaler (OR & NICU) 2 puff IH QID PRN #1 inhalation 08/17/17 Unknown Rx [Proair] levoFLOXacin [Levaquin] 750 mg PO QDAY #7 tablet 08/17/17 Unknown Rx Nitrofurantoin Monohyd/M-Cryst 100 mg PO Q12H 3 Days #6 capsule 09/01/17 Unknown Rx [Macrobid 100 mg Capsule] Azithromycin [Zithromax Z-YUMIKO] 250 mg PO DAILY #6 tablet 05/14/18 Unknown Rx Benzonatate [Tessalon Perle] 100 mg PO Q8H PRN #20 capsule 05/14/18 Unknown Rx Loratadine [Claritin] 10 mg PO DAILY #30 tablet 05/14/18 Unknown Rx Ibuprofen [Motrin] 600 mg PO Q8H PRN #20 tablet 08/04/18 Unknown Rx traMADol [Ultram 50 MG tab] 50 mg PO Q6HR PRN 3 Days #12 tablet 11/18/18 Unknown Rx Bepotastine Besilate [Bepreve 1.5%] 1 drop OU BID #1 drops 12/30/18 Unknown Rx Cetirizine HCl [ZyrTEC] 10 mg PO DAILY #30 tab.rapdis 12/30/18 Unknown Rx Fluticasone [Flonase] 1 spray NS QDAY #1 bottle 12/30/18 Unknown Rx Allergies Allergy/AdvReac Type Severity Reaction Status Date / Time ampicillin Allergy Itching Verified 05/10/15 20:17 ED Review of Systems ROS: Stated complaint: LEFT EYE PAIN/ITCHY/REDNESS/BLURRY Other details as noted in HPI Comment: All other systems reviewed and negative Constitutional: denies: chills, fever Eyes: denies: eye pain, eye discharge, vision change ENT: denies: ear pain, throat pain Respiratory: denies: cough, shortness of breath, wheezing Cardiovascular: denies: chest pain, palpitations Endocrine: no symptoms reported Gastrointestinal: denies: abdominal pain, nausea, diarrhea Genitourinary: denies: urgency, dysuria, discharge Musculoskeletal: denies: back pain, joint swelling, arthralgia Skin: denies: rash, lesions Neurological: denies: headache, weakness, paresthesias Psychiatric: denies: anxiety, depression Hematological/Lymphatic: denies: easy bleeding, easy bruising ED Past Medical Hx - Past Medical History Hx CVA: Yes (2009) Hx Congestive Heart Failure: No Hx Diabetes: No Hx Arthritis: Yes Hx Headaches / Migraines: Yes Hx Psychiatric Treatment: Yes (depression) Hx Asthma: No Hx COPD: No Hx HIV: No - Surgical History Past Surgical History?: Yes Hx Appendectomy: Yes Additional Surgical History: hysterectomy, left ankle surgery, left carotid endarterectomy - Social History Smoking Status: Current Every Day Smoker - Medications Home Medications: Home Medications Medication Instructions Recorded Confirmed Last Taken Type Aspirin EC [Aspirin Enteric Coated 81 mg PO QDAY 03/01/15 08/10/15 Unknown History TAB] Acetaminophen/Codeine [Tylenol #3] 1 tab PO Q6H PRN #20 tab 11/14/15 Unknown Rx Cyclobenzaprine [Flexeril] 10 mg PO TID PRN #20 tablet 11/14/15 Unknown Rx Naproxen [Naprosyn TAB] 500 mg PO BID #30 tablet 11/14/15 Unknown Rx Azithromycin [Zithromax Z-YUMIKO] 250 mg PO QDAY #6 tablet 03/06/16 Unknown Rx Ibuprofen [Motrin] 800 mg PO Q8HR PRN #10 tablet 03/06/16 Unknown Rx Promethazine /Codeine 5 ml PO Q6H PRN #90 ml 03/06/16 Unknown Rx [Phenergan/Codeine 6.25-10 mg/5Ml] Cyclobenzaprine HCl [Flexeril 5 MG 5 mg PO TID #20 tab 05/18/16 Unknown Rx TAB] Ibuprofen [Motrin 800 MG tab] 800 mg PO Q8HR PRN #20 tablet 05/18/16 Unknown Rx ALBUTEROL Inhaler (OR & NICU) 2 puff IH QID PRN #1 inhalation 08/17/17 Unknown Rx [Proair] levoFLOXacin [Levaquin] 750 mg PO QDAY #7 tablet 08/17/17 Unknown Rx Nitrofurantoin Monohyd/M-Cryst 100 mg PO Q12H 3 Days #6 capsule 09/01/17 Unknown Rx [Macrobid 100 mg Capsule] Azithromycin [Zithromax Z-YUMIKO] 250 mg PO DAILY #6 tablet 05/14/18 Unknown Rx Benzonatate [Tessalon Perle] 100 mg PO Q8H PRN #20 capsule 05/14/18 Unknown Rx Loratadine [Claritin] 10 mg PO DAILY #30 tablet 05/14/18 Unknown Rx Ibuprofen [Motrin] 600 mg PO Q8H PRN #20 tablet 08/04/18 Unknown Rx traMADol [Ultram 50 MG tab] 50 mg PO Q6HR PRN 3 Days #12 tablet 11/18/18 Unknown Rx Bepotastine Besilate [Bepreve 1.5%] 1 drop OU BID #1 drops 12/30/18 Unknown Rx Cetirizine HCl [ZyrTEC] 10 mg PO DAILY #30 tab.rapdis 12/30/18 Unknown Rx Fluticasone [Flonase] 1 spray NS QDAY #1 bottle 12/30/18 Unknown Rx ED Physical Exam - General Limitations: No Limitations General appearance: alert, in no apparent distress - Head Head exam: Present: atraumatic, normocephalic - Eye Eye exam: Present: normal appearance, PERRL, EOMI, other (cobblestoning of the palpebral conjunctiva) - ENT ENT exam: Present: mucous membranes moist - Neck Neck exam: Present: normal inspection - Respiratory Respiratory exam: Present: normal lung sounds bilaterally. Absent: respiratory distress - Extremities Exam Extremities exam: Present: normal inspection - Back Exam Back exam: Present: normal inspection - Neurological Exam Neurological exam: Present: alert, oriented X3, CN II-XII intact. Absent: motor sensory deficit - Psychiatric Psychiatric exam: Present: normal affect, normal mood - Skin Skin exam: Present: warm, dry, intact, normal color. Absent: rash ED Course Vital Signs 12/30/18 11:28 Temperature 97.9 F Pulse Rate 82 Respiratory 20 Rate Blood Pressure 108/81 O2 Sat by Pulse 99 Oximetry ED Medical Decision Making - Medical Decision Making Discussed plan of care with patient Critical care attestation.: If time is entered above; I have spent that time in minutes in the direct care of this critically ill patient, excluding procedure time. ED Disposition Clinical Impression: Allergic conjunctivitis Disposition: DC- TO HOME OR SELFCARE Is pt being admited?: No Does the pt Need Aspirin: No Condition: Stable Instructions: Allergies (ED) Additional Instructions: return if worse Prescriptions: Bepotastine Besilate [Bepreve 1.5%] 1 drop OU BID #1 drops Fluticasone [Flonase] 1 spray NS QDAY #1 bottle Cetirizine HCl [ZyrTEC] 10 mg PO DAILY #30 tab.rapdis Referrals: [facility] [Provider Group] - 3-5 Days [facility] [Provider Group] - 3-5 Days Time of Disposition: 13:01
== END 2018-12-30 13:38 | disposition home or self-care (01) ==
LOC: ED 11:23
DX: H10.13 Acute atopic conjunctivitis, bilateral (principal); M19.90 Unspecified osteoarthritis, unspecified site; F32.9 Major depressive disorder, single episode, unspecified; G40.909 Epilepsy, unspecified, not intractable, without status epilepticus; F17.200 Nicotine dependence, unspecified, uncomplicated; Z90.710 Acquired absence of both cervix and uterus; Z88.1 Allergy status to other antibiotic agents
CPT/HCPCS: 99282

== ENCOUNTER 2019-03-08 20:05 | Emergency (ER) | payer SELFPAY ==
[2019-03-08] MEDS ORDERED: IBUPROFEN PO ONE (22:39)
[2019-03-09] MEDS ORDERED: SOLU-Medrol IM ONE (02:29)
--- NOTE | 2019-03-09 02:29 | Emergency Department Report ---
ED Upper Extremity Inj HPI - General Chief Complaint: Shoulder Injury Stated Complaint: RT SHOULDER/ARM PAIN Time Seen by Provider: 03/09/19 01:39 Source: patient Mode of arrival: Ambulatory Limitations: No Limitations - History of Present Illness Initial Comments: 58-year-old female presents to ED with complaint of right shoulder pain. 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 Patient then began having pain in the right shoulder, unable to lift her shoulder due to the pain. Tried topical analgesics without relief. MD Complaint: Injury to:: right, shoulder -: days(s) (2) Other Injuries: none Place: work Improves With: immobilization Worsens With: movement of extremity Context: other (heavy lifting) Associated Symptoms: denies: numbness - Related Data Home Medications Medication Instructions Recorded Confirmed Last Taken Aspirin EC 81 mg PO QDAY 03/01/15 08/10/15 Unknown Previous Rx's Medication Instructions Recorded Last Taken Type Acetaminophen/Codeine [Tylenol #3] 1 tab PO Q6H PRN #20 tab 11/14/15 Unknown Rx Cyclobenzaprine [Flexeril] 10 mg PO TID PRN #20 tablet 11/14/15 Unknown Rx Naproxen [Naprosyn TAB] 500 mg PO BID #30 tablet 11/14/15 Unknown Rx Azithromycin [Zithromax Z-YUMIKO] 250 mg PO QDAY #6 tablet 03/06/16 Unknown Rx Ibuprofen [Motrin] 800 mg PO Q8HR PRN #10 tablet 03/06/16 Unknown Rx Promethazine /Codeine 5 ml PO Q6H PRN #90 ml 03/06/16 Unknown Rx [Phenergan/Codeine 6.25-10 mg/5Ml] Cyclobenzaprine HCl [Flexeril 5 MG 5 mg PO TID #20 tab 05/18/16 Unknown Rx TAB] Ibuprofen [Motrin 800 MG tab] 800 mg PO Q8HR PRN #20 tablet 05/18/16 Unknown Rx ALBUTEROL Inhaler (OR & NICU) 2 puff IH QID PRN #1 inhalation 08/17/17 Unknown Rx [Proair] levoFLOXacin [Levaquin] 750 mg PO QDAY #7 tablet 08/17/17 Unknown Rx Nitrofurantoin Monohyd/M-Cryst 100 mg PO Q12H 3 Days #6 capsule 09/01/17 Unknown Rx [Macrobid 100 mg Capsule] Azithromycin [Zithromax Z-YUMIKO] 250 mg PO DAILY #6 tablet 05/14/18 Unknown Rx Benzonatate [Tessalon Perle] 100 mg PO Q8H PRN #20 capsule 05/14/18 Unknown Rx Loratadine [Claritin] 10 mg PO DAILY #30 tablet 05/14/18 Unknown Rx Ibuprofen [Motrin] 600 mg PO Q8H PRN #20 tablet 08/04/18 Unknown Rx traMADol [Ultram 50 MG tab] 50 mg PO Q6HR PRN 3 Days #12 tablet 11/18/18 Unknown Rx Bepotastine Besilate [Bepreve 1.5%] 1 drop OU BID #1 drops 12/30/18 Unknown Rx Cetirizine HCl [ZyrTEC] 10 mg PO DAILY #30 tab.rapdis 12/30/18 Unknown Rx Fluticasone [Flonase] 1 spray NS QDAY #1 bottle 12/30/18 Unknown Rx Naproxen [Naprosyn] 500 mg PO BID #20 tablet 03/09/19 Unknown Rx methOCARBAMOL [Robaxin TAB] 500 mg PO Q8HR PRN #20 tablet 03/09/19 Unknown Rx predniSONE [Deltasone] 50 mg PO QDAY #5 tab 03/09/19 Unknown Rx traMADol [Ultram] 50 mg PO Q6HR PRN #7 tablet 03/09/19 Unknown Rx Allergies Allergy/AdvReac Type Severity Reaction Status Date / Time ampicillin Allergy Itching Verified 05/10/15 20:17 ED Review of Systems ROS: Stated complaint: RT SHOULDER/ARM PAIN Other details as noted in HPI Comment: All other systems reviewed and negative Musculoskeletal: as per HPI Neurological: denies: numbness, paresthesias ED Past Medical Hx - Past Medical History Hx CVA: Yes (2010- NO RESIDUAL) Hx Congestive Heart Failure: No Hx Diabetes: No Hx Arthritis: Yes Hx Headaches / Migraines: Yes Hx Psychiatric Treatment: Yes (depression) Hx Asthma: No Hx COPD: No Hx HIV: No - Surgical History Hx Appendectomy: Yes Additional Surgical History: hysterectomy, left ankle surgery, left carotid endarterectomy - Social History Smoking Status: Current Every Day Smoker Substance Use Type: None - Medications Home Medications: Home Medications Medication Instructions Recorded Confirmed Last Taken Type Aspirin EC 81 mg PO QDAY 03/01/15 08/10/15 Unknown History Acetaminophen/Codeine [Tylenol #3] 1 tab PO Q6H PRN #20 tab 11/14/15 Unknown Rx Cyclobenzaprine [Flexeril] 10 mg PO TID PRN #20 tablet 11/14/15 Unknown Rx Naproxen [Naprosyn TAB] 500 mg PO BID #30 tablet 11/14/15 Unknown Rx Azithromycin [Zithromax Z-YUMIKO] 250 mg PO QDAY #6 tablet 03/06/16 Unknown Rx Ibuprofen [Motrin] 800 mg PO Q8HR PRN #10 tablet 03/06/16 Unknown Rx Promethazine /Codeine 5 ml PO Q6H PRN #90 ml 03/06/16 Unknown Rx [Phenergan/Codeine 6.25-10 mg/5Ml] Cyclobenzaprine HCl [Flexeril 5 MG 5 mg PO TID #20 tab 05/18/16 Unknown Rx TAB] Ibuprofen [Motrin 800 MG tab] 800 mg PO Q8HR PRN #20 tablet 05/18/16 Unknown Rx ALBUTEROL Inhaler (OR & NICU) 2 puff IH QID PRN #1 inhalation 08/17/17 Unknown Rx [Proair] levoFLOXacin [Levaquin] 750 mg PO QDAY #7 tablet 08/17/17 Unknown Rx Nitrofurantoin Monohyd/M-Cryst 100 mg PO Q12H 3 Days #6 capsule 09/01/17 Unknown Rx [Macrobid 100 mg Capsule] Azithromycin [Zithromax Z-YUMIKO] 250 mg PO DAILY #6 tablet 05/14/18 Unknown Rx Benzonatate [Tessalon Perle] 100 mg PO Q8H PRN #20 capsule 05/14/18 Unknown Rx Loratadine [Claritin] 10 mg PO DAILY #30 tablet 05/14/18 Unknown Rx Ibuprofen [Motrin] 600 mg PO Q8H PRN #20 tablet 08/04/18 Unknown Rx traMADol [Ultram 50 MG tab] 50 mg PO Q6HR PRN 3 Days #12 tablet 11/18/18 Unknown Rx Bepotastine Besilate [Bepreve 1.5%] 1 drop OU BID #1 drops 12/30/18 Unknown Rx Cetirizine HCl [ZyrTEC] 10 mg PO DAILY #30 tab.rapdis 12/30/18 Unknown Rx Fluticasone [Flonase] 1 spray NS QDAY #1 bottle 12/30/18 Unknown Rx Naproxen [Naprosyn] 500 mg PO BID #20 tablet 03/09/19 Unknown Rx methOCARBAMOL [Robaxin TAB] 500 mg PO Q8HR PRN #20 tablet 03/09/19 Unknown Rx predniSONE [Deltasone] 50 mg PO QDAY #5 tab 03/09/19 Unknown Rx traMADol [Ultram] 50 mg PO Q6HR PRN #7 tablet 03/09/19 Unknown Rx ED Physical Exam - General Limitations: No Limitations General appearance: alert, in no apparent distress, other (frail) - Head Head exam: Present: atraumatic, normocephalic - Eye Eye exam: Present: normal appearance - ENT ENT exam: Present: mucous membranes moist - Neck Neck exam: Present: normal inspection - Respiratory Respiratory exam: Present: normal lung sounds bilaterally. Absent: respiratory distress - Cardiovascular Cardiovascular Exam: Present: regular rate, normal rhythm - GI/Abdominal GI/Abdominal exam: Absent: distended - Extremities Exam Extremities exam: Present: other (tenderness to right posterior shoulder along border of scapula; pain with abduction; limited ROM with abduction; strength 5/5; sensation intact; no deformity or swelling) - Neurological Exam Neurological exam: Present: alert, oriented X3. Absent: motor sensory deficit - Psychiatric Psychiatric exam: Present: normal affect, normal mood - Skin Skin exam: Present: warm, dry, intact, normal color. Absent: rash ED Course Vital Signs 03/08/19 03/08/19 03/09/19 20:25 21:35 01:50 Temperature 97.5 F L 97.5 F L Pulse Rate 95 H 91 H 90 Respiratory 18 18 15 Rate Blood Pressure 121/80 121/80 O2 Sat by Pulse 100 100 100 Oximetry 03/09/19 03/09/19 02:00 02:15 Temperature Pulse Rate 79 75 Respiratory 15 17 Rate Blood Pressure 99/57 112/71 O2 Sat by Pulse 98 98 Oximetry ED Medical Decision Making - Medical Decision Making 58-year-old female with right shoulder pain after lifting heavy items at work. Likely rotator cuff tendinitis. No neuro deficits present. Patient given ibuprofen, Solu-Medrol and Robaxin here in the ED. Will discharge with prescription for prednisone, Robaxin, Naprosyn, and Ultram. Patient advised to follow-up with orthopedist. Return precautions given. - Differential Diagnosis shoulder sprain Critical care attestation.: If time is entered above; I have spent that time in minutes in the direct care of this critically ill patient, excluding procedure time. ED Disposition Clinical Impression: Rotator cuff (capsule) sprain Disposition: TO HOME OR SELFCARE Is pt being admited?: No Condition: Stable Instructions: Rotator Cuff Tendinitis (ED) Prescriptions: predniSONE [Deltasone] 50 mg PO QDAY #5 tab Naproxen [Naprosyn] 500 mg PO BID #20 tablet methOCARBAMOL [Robaxin TAB] 500 mg PO Q8HR PRN #20 tablet PRN Reason: Muscle Spasm traMADol [Ultram] 50 mg PO Q6HR PRN #7 tablet PRN Reason: Pain Referrals: [facility] MD MAYRA [Primary Care Provider] - 3-5 Days JULIANN LYNN MD [Staff Physician] - 3-5 Days Forms: Work/School Release Form(ED) Time of Disposition: 02:29
[2019-03-09 02:42] VITALS: BP 112/71
[2019-03-09] MEDS ORDERED: ROBAXIN PO ONE (02:50)
== END 2019-03-09 03:12 | disposition home or self-care (01) ==
LOC: ED 20:05
DX: S43.421A Sprain of right rotator cuff capsule, initial encounter (principal); M19.90 Unspecified osteoarthritis, unspecified site; G43.909 Migraine, unspecified, not intractable, without status migrainosus; F17.200 Nicotine dependence, unspecified, uncomplicated; F32.9 Major depressive disorder, single episode, unspecified; Z90.710 Acquired absence of both cervix and uterus; Z90.49 Acquired absence of other specified parts of digestive tract; Z88.1 Allergy status to other antibiotic agents; Z79.899 Other long term (current) drug therapy; X50.0XXA Overexertion from strenuous movement or load, initial encounter; Y93.89 Activity, other specified; Y92.69 Other specified industrial and construction area as the place of occurrence of the external cause; Y99.0 Civilian activity done for income or pay
CPT/HCPCS: 96372; 99282; J2930

== ENCOUNTER 2019-07-19 18:52 | Emergency (ER) | payer SELFPAY ==
[2019-07-19 19:26] VITALS: BP 108/72
--- NOTE | 2019-07-19 19:44 | Emergency Department Report ---
- General Chief complaint: Allergic Reaction Stated complaint: ALLERGIC REACTION Time Seen by Provider: 07/19/19 19:39 Source: patient Mode of arrival: Ambulatory Limitations: No Limitations - History of Present Illness Initial comments: pt is a 58 yo female who presents to the ED with c/o skin rash to the chin that began a week ago. states she used an electronic skin hair removal on the chin two weeks ago. states initially she had tingling then broke out in a rash and scabbing. states she has associated itching/burning. she denies any fever, chills, n/v. pmhx CVA, migraines, depression, osteoporosis. allergy: ampicillin. can take other penicillins with no issue. - Related Data Home Medications Medication Instructions Recorded Confirmed Last Taken Aspirin EC [Halfprin EC] 81 mg PO QDAY 03/01/15 08/10/15 Unknown Previous Rx's Medication Instructions Recorded Last Taken Type Acetaminophen/Codeine [Tylenol #3] 1 tab PO Q6H PRN #20 tab 11/14/15 Unknown Rx Cyclobenzaprine [Flexeril] 10 mg PO TID PRN #20 tablet 11/14/15 Unknown Rx Naproxen [Naprosyn TAB] 500 mg PO BID #30 tablet 11/14/15 Unknown Rx Azithromycin [Zithromax Z-YUMIKO] 250 mg PO QDAY #6 tablet 03/06/16 Unknown Rx Ibuprofen [Motrin] 800 mg PO Q8HR PRN #10 tablet 03/06/16 Unknown Rx Promethazine /Codeine 5 ml PO Q6H PRN #90 ml 03/06/16 Unknown Rx [Phenergan/Codeine 6.25-10 mg/5Ml] Cyclobenzaprine HCl [Flexeril 5 MG 5 mg PO TID #20 tab 05/18/16 Unknown Rx TAB] Ibuprofen [Motrin 800 MG tab] 800 mg PO Q8HR PRN #20 tablet 05/18/16 Unknown Rx ALBUTEROL Inhaler (OR & NICU) 2 puff IH QID PRN #1 inhalation 08/17/17 Unknown Rx [Proair] levoFLOXacin [Levaquin] 750 mg PO QDAY #7 tablet 08/17/17 Unknown Rx Nitrofurantoin Monohyd/M-Cryst 100 mg PO Q12H 3 Days #6 capsule 09/01/17 Unknown Rx [Macrobid 100 mg Capsule] Azithromycin [Zithromax Z-YUMIKO] 250 mg PO DAILY #6 tablet 05/14/18 Unknown Rx Benzonatate [Tessalon Perle] 100 mg PO Q8H PRN #20 capsule 05/14/18 Unknown Rx Loratadine [Claritin] 10 mg PO DAILY #30 tablet 05/14/18 Unknown Rx Ibuprofen [Motrin] 600 mg PO Q8H PRN #20 tablet 08/04/18 Unknown Rx traMADol [Ultram 50 MG tab] 50 mg PO Q6HR PRN 3 Days #12 tablet 11/18/18 Unknown Rx Bepotastine Besilate [Bepreve 1.5%] 1 drop OU BID #1 drops 12/30/18 Unknown Rx Cetirizine HCl [ZyrTEC] 10 mg PO DAILY #30 tab.rapdis 12/30/18 Unknown Rx Fluticasone [Flonase] 1 spray NS QDAY #1 bottle 12/30/18 Unknown Rx Naproxen [Naprosyn] 500 mg PO BID #20 tablet 03/09/19 Unknown Rx methOCARBAMOL [Robaxin TAB] 500 mg PO Q8HR PRN #20 tablet 03/09/19 Unknown Rx predniSONE [Deltasone] 50 mg PO QDAY #5 tab 03/09/19 Unknown Rx traMADol [Ultram] 50 mg PO Q6HR PRN #7 tablet 03/09/19 Unknown Rx Ketorolac [Toradol] 10 mg PO Q6H PRN #15 tablet 06/14/19 Unknown Rx methOCARBAMOL [Robaxin] 750 mg PO Q8H PRN #21 tablet 06/14/19 Unknown Rx predniSONE [Deltasone] 50 mg PO QDAY #5 tab 06/14/19 Unknown Rx Doxycycline Hyclate [Doxycycline 100 mg PO BID 7 Days #14 tab 07/19/19 Unknown Rx Hyclate TAB] Mupirocin [Bactroban 2% OINT] 1 applic TP TID #1 tube 07/19/19 Unknown Rx Allergies Allergy/AdvReac Type Severity Reaction Status Date / Time ampicillin Allergy Itching Verified 05/10/15 20:17 Abscess Boil HPI - HPI Chief Complaint: Allergic Reaction Stated Complaint: ALLERGIC REACTION Time Seen by Provider: 07/19/19 19:39 Home Medications: Home Medications Medication Instructions Recorded Confirmed Last Taken Aspirin EC [Halfprin EC] 81 mg PO QDAY 03/01/15 08/10/15 Unknown Previous Rx's Medication Instructions Recorded Last Taken Type Acetaminophen/Codeine [Tylenol #3] 1 tab PO Q6H PRN #20 tab 11/14/15 Unknown Rx Cyclobenzaprine [Flexeril] 10 mg PO TID PRN #20 tablet 11/14/15 Unknown Rx Naproxen [Naprosyn TAB] 500 mg PO BID #30 tablet 11/14/15 Unknown Rx Azithromycin [Zithromax Z-YUMIKO] 250 mg PO QDAY #6 tablet 03/06/16 Unknown Rx Ibuprofen [Motrin] 800 mg PO Q8HR PRN #10 tablet 03/06/16 Unknown Rx Promethazine /Codeine 5 ml PO Q6H PRN #90 ml 03/06/16 Unknown Rx [Phenergan/Codeine 6.25-10 mg/5Ml] Cyclobenzaprine HCl [Flexeril 5 MG 5 mg PO TID #20 tab 05/18/16 Unknown Rx TAB] Ibuprofen [Motrin 800 MG tab] 800 mg PO Q8HR PRN #20 tablet 05/18/16 Unknown Rx ALBUTEROL Inhaler (OR & NICU) 2 puff IH QID PRN #1 inhalation 08/17/17 Unknown Rx [Proair] levoFLOXacin [Levaquin] 750 mg PO QDAY #7 tablet 08/17/17 Unknown Rx Nitrofurantoin Monohyd/M-Cryst 100 mg PO Q12H 3 Days #6 capsule 09/01/17 Unknown Rx [Macrobid 100 mg Capsule] Azithromycin [Zithromax Z-YUMIKO] 250 mg PO DAILY #6 tablet 05/14/18 Unknown Rx Benzonatate [Tessalon Perle] 100 mg PO Q8H PRN #20 capsule 05/14/18 Unknown Rx Loratadine [Claritin] 10 mg PO DAILY #30 tablet 05/14/18 Unknown Rx Ibuprofen [Motrin] 600 mg PO Q8H PRN #20 tablet 08/04/18 Unknown Rx traMADol [Ultram 50 MG tab] 50 mg PO Q6HR PRN 3 Days #12 tablet 11/18/18 Unknown Rx Bepotastine Besilate [Bepreve 1.5%] 1 drop OU BID #1 drops 12/30/18 Unknown Rx Cetirizine HCl [ZyrTEC] 10 mg PO DAILY #30 tab.rapdis 12/30/18 Unknown Rx Fluticasone [Flonase] 1 spray NS QDAY #1 bottle 12/30/18 Unknown Rx Naproxen [Naprosyn] 500 mg PO BID #20 tablet 03/09/19 Unknown Rx methOCARBAMOL [Robaxin TAB] 500 mg PO Q8HR PRN #20 tablet 03/09/19 Unknown Rx predniSONE [Deltasone] 50 mg PO QDAY #5 tab 03/09/19 Unknown Rx traMADol [Ultram] 50 mg PO Q6HR PRN #7 tablet 03/09/19 Unknown Rx Ketorolac [Toradol] 10 mg PO Q6H PRN #15 tablet 06/14/19 Unknown Rx methOCARBAMOL [Robaxin] 750 mg PO Q8H PRN #21 tablet 06/14/19 Unknown Rx predniSONE [Deltasone] 50 mg PO QDAY #5 tab 06/14/19 Unknown Rx Doxycycline Hyclate [Doxycycline 100 mg PO BID 7 Days #14 tab 07/19/19 Unknown Rx Hyclate TAB] Mupirocin [Bactroban 2% OINT] 1 applic TP TID #1 tube 07/19/19 Unknown Rx Allergies/Adverse Reactions: Allergies Allergy/AdvReac Type Severity Reaction Status Date / Time ampicillin Allergy Itching Verified 05/10/15 20:17 ED Review of Systems ROS: Stated complaint: ALLERGIC REACTION Other details as noted in HPI Comment: All other systems reviewed and negative ED Past Medical Hx - Past Medical History Hx CVA: Yes (2009- NO RESIDUAL) Hx Congestive Heart Failure: No Hx Diabetes: No Hx Arthritis: Yes Hx Headaches / Migraines: Yes Hx Psychiatric Treatment: Yes (depression) Hx Asthma: No Hx COPD: No Hx HIV: No - Surgical History Hx Appendectomy: Yes Additional Surgical History: hysterectomy, left ankle surgery, left carotid endarterectomy - Social History Smoking Status: Current Every Day Smoker Substance Use Type: None - Medications Home Medications: Home Medications Medication Instructions Recorded Confirmed Last Taken Type Aspirin EC [Halfprin EC] 81 mg PO QDAY 03/01/15 08/10/15 Unknown History Acetaminophen/Codeine [Tylenol #3] 1 tab PO Q6H PRN #20 tab 11/14/15 Unknown Rx Cyclobenzaprine [Flexeril] 10 mg PO TID PRN #20 tablet 11/14/15 Unknown Rx Naproxen [Naprosyn TAB] 500 mg PO BID #30 tablet 11/14/15 Unknown Rx Azithromycin [Zithromax Z-YUMIKO] 250 mg PO QDAY #6 tablet 03/06/16 Unknown Rx Ibuprofen [Motrin] 800 mg PO Q8HR PRN #10 tablet 03/06/16 Unknown Rx Promethazine /Codeine 5 ml PO Q6H PRN #90 ml 03/06/16 Unknown Rx [Phenergan/Codeine 6.25-10 mg/5Ml] Cyclobenzaprine HCl [Flexeril 5 MG 5 mg PO TID #20 tab 05/18/16 Unknown Rx TAB] Ibuprofen [Motrin 800 MG tab] 800 mg PO Q8HR PRN #20 tablet 05/18/16 Unknown Rx ALBUTEROL Inhaler (OR & NICU) 2 puff IH QID PRN #1 inhalation 08/17/17 Unknown Rx [Proair] levoFLOXacin [Levaquin] 750 mg PO QDAY #7 tablet 08/17/17 Unknown Rx Nitrofurantoin Monohyd/M-Cryst 100 mg PO Q12H 3 Days #6 capsule 09/01/17 Unknown Rx [Macrobid 100 mg Capsule] Azithromycin [Zithromax Z-YUMIKO] 250 mg PO DAILY #6 tablet 05/14/18 Unknown Rx Benzonatate [Tessalon Perle] 100 mg PO Q8H PRN #20 capsule 05/14/18 Unknown Rx Loratadine [Claritin] 10 mg PO DAILY #30 tablet 05/14/18 Unknown Rx Ibuprofen [Motrin] 600 mg PO Q8H PRN #20 tablet 08/04/18 Unknown Rx traMADol [Ultram 50 MG tab] 50 mg PO Q6HR PRN 3 Days #12 tablet 11/18/18 Unknown Rx Bepotastine Besilate [Bepreve 1.5%] 1 drop OU BID #1 drops 12/30/18 Unknown Rx Cetirizine HCl [ZyrTEC] 10 mg PO DAILY #30 tab.rapdis 12/30/18 Unknown Rx Fluticasone [Flonase] 1 spray NS QDAY #1 bottle 12/30/18 Unknown Rx Naproxen [Naprosyn] 500 mg PO BID #20 tablet 03/09/19 Unknown Rx methOCARBAMOL [Robaxin TAB] 500 mg PO Q8HR PRN #20 tablet 03/09/19 Unknown Rx predniSONE [Deltasone] 50 mg PO QDAY #5 tab 03/09/19 Unknown Rx traMADol [Ultram] 50 mg PO Q6HR PRN #7 tablet 03/09/19 Unknown Rx Ketorolac [Toradol] 10 mg PO Q6H PRN #15 tablet 06/14/19 Unknown Rx methOCARBAMOL [Robaxin] 750 mg PO Q8H PRN #21 tablet 06/14/19 Unknown Rx predniSONE [Deltasone] 50 mg PO QDAY #5 tab 06/14/19 Unknown Rx Doxycycline Hyclate [Doxycycline 100 mg PO BID 7 Days #14 tab 07/19/19 Unknown Rx Hyclate TAB] Mupirocin [Bactroban 2% OINT] 1 applic TP TID #1 tube 07/19/19 Unknown Rx ED Physical Exam - General Limitations: No Limitations General appearance: alert, in no apparent distress - Head Head exam: Present: atraumatic, normocephalic - Eye Eye exam: Present: normal appearance - ENT ENT exam: Present: mucous membranes moist - Neurological Exam Neurological exam: Present: alert, oriented X3 - Psychiatric Psychiatric exam: Present: normal affect, normal mood - Skin Skin exam: Present: warm, dry, other (erythema and increased warmth present to the chin with small areas of abrasions, no fluctuance, no drainage, no edema, no necrosis, no blistering) ED Course Vital Signs 07/19/19 07/19/19 19:25 19:39 Temperature 97.8 F 97.8 F Pulse Rate 87 87 Respiratory 18 18 Rate Blood Pressure 108/72 Blood Pressure 108/72 [Right] O2 Sat by Pulse 100 100 Oximetry ED Medical Decision Making - Medical Decision Making pt is a 58 yo female who presents to the ED with c/o skin rash to the chin that began a week ago. states she used an electronic skin hair removal on the chin two weeks ago. states initially she had tingling then broke out in a rash and scabbing. states she has associated itching/burning. she denies any fever, chills, n/v. pmhx CVA, migraines, depression, osteoporosis. allergy: ampicillin. can take other penicillins with no issue. VSS. on exam: erythema and increased warmth present to the chin with small areas of abrasions, no fluctuance, no drainage, no edema, no necrosis, no blistering. examination consistent with cellulitis/skin irritation. no signs of abscess at this time. pt given prescription for mupirocen and doxycycline. advised pt to please use medication as prescribed. please use benadryl to avoid scratching and do not drive while taking it due to drowsiness. do not wear makeup on the face and do not use that hair removal kit again. follow up with a primary care doctor in 3 days for reexamination. return to the emergency room for any new or worsening symptoms. Critical care attestation.: If time is entered above; I have spent that time in minutes in the direct care of this critically ill patient, excluding procedure time. ED Disposition Clinical Impression: Cellulitis Qualifiers: Site of cellulitis: face Qualified Code(s): L03.211 - Cellulitis of face Disposition: DC- TO HOME OR SELFCARE Is pt being admited?: No Does the pt Need Aspirin: No Condition: Stable Instructions: Cellulitis (ED) Additional Instructions: please use medication as prescribed. please use benadryl to avoid scratching and do not drive while taking it due to drowsiness. do not wear makeup on the face and do not use that hair removal kit again. follow up with a primary care doctor in 3 days for reexamination. return to the emergency room for any new or worsening symptoms. Prescriptions: Mupirocin [Bactroban 2% OINT] 1 applic TP TID #1 tube Doxycycline Hyclate [Doxycycline Hyclate TAB] 100 mg PO BID 7 Days #14 tab Referrals: [facility] [Provider Group] - 2-3 Days [facility] [Outside] - 2-3 Days [facility] [Outside] - 2-3 Days Time of Disposition: 19:44 Print Language: FRENCH
== END 2019-07-19 19:55 | disposition home or self-care (01) ==
LOC: ED 18:52
DX: L03.211 Cellulitis of face (principal); M19.90 Unspecified osteoarthritis, unspecified site; F32.9 Major depressive disorder, single episode, unspecified; F17.200 Nicotine dependence, unspecified, uncomplicated; Z86.73 Personal history of transient ischemic attack (TIA), and cerebral infarction without residual deficits; Z90.89 Acquired absence of other organs; Z90.710 Acquired absence of both cervix and uterus; Z88.1 Allergy status to other antibiotic agents

== ENCOUNTER 2019-10-11 08:48 | Emergency (ER) | payer SELFPAY ==
[2019-10-11 08:59] VITALS: BP 119/78
--- NOTE | 2019-10-11 13:59 | Emergency Department Report ---
- General Chief complaint: Skin Rash Stated complaint: RASH/CHIN ITCHING/BURNING Source: patient Mode of arrival: Ambulatory Limitations: No Limitations - History of Present Illness Initial comments: 58-year-old female presents to the emergency room with complaints of dry cracked HE skin dry cracked cheek.. Patient was seen back in June at this emergency room. After using a swivel shaver to her chin. She was treated with Bactroban and oral antibiotics. Patient states she never really got any relief. Her chin skin remains dry and cracked and itchy. She denies fever chills nausea vomiting no chest pain or shortness of breath MD complaint: rash -: month(s) Location: face Consistency: constant Improves with: none Worsens with: none Context: none Associated symptoms: itching Treatments Prior to Arrival: OTC topical medication - Related Data Home Medications Medication Instructions Recorded Confirmed Last Taken Aspirin EC [Halfprin EC] 81 mg PO QDAY 03/01/15 08/10/15 Unknown Previous Rx's Medication Instructions Recorded Last Taken Type Acetaminophen/Codeine [Tylenol #3] 1 tab PO Q6H PRN #20 tab 11/14/15 Unknown Rx Cyclobenzaprine [Flexeril] 10 mg PO TID PRN #20 tablet 11/14/15 Unknown Rx Naproxen [Naprosyn TAB] 500 mg PO BID #30 tablet 11/14/15 Unknown Rx Azithromycin [Zithromax Z-YUMIKO] 250 mg PO QDAY #6 tablet 03/06/16 Unknown Rx Ibuprofen [Motrin] 800 mg PO Q8HR PRN #10 tablet 03/06/16 Unknown Rx Promethazine /Codeine 5 ml PO Q6H PRN #90 ml 03/06/16 Unknown Rx [Phenergan/Codeine 6.25-10 mg/5Ml] Cyclobenzaprine HCl [Flexeril 5 MG 5 mg PO TID #20 tab 05/18/16 Unknown Rx TAB] Ibuprofen [Motrin 800 MG tab] 800 mg PO Q8HR PRN #20 tablet 05/18/16 Unknown Rx Albuterol INH(or & Nicu Only) 2 puff IH QID PRN #1 inhalation 08/17/17 Unknown Rx [Proair] levoFLOXacin [Levaquin] 750 mg PO QDAY #7 tablet 08/17/17 Unknown Rx Nitrofurantoin Monohyd/M-Cryst 100 mg PO Q12H 3 Days #6 capsule 09/01/17 Unknown Rx [Macrobid 100 mg Capsule] Azithromycin [Zithromax Z-YUMIKO] 250 mg PO DAILY #6 tablet 05/14/18 Unknown Rx Benzonatate [Tessalon Perle] 100 mg PO Q8H PRN #20 capsule 05/14/18 Unknown Rx Loratadine (Nf) [Claritin] 10 mg PO DAILY #30 tablet 05/14/18 Unknown Rx Ibuprofen [Motrin] 600 mg PO Q8H PRN #20 tablet 08/04/18 Unknown Rx traMADoL [Ultram 50 MG tab] 50 mg PO Q6HR PRN 3 Days #12 tablet 11/18/18 Unknown Rx Bepotastine Besilate [Bepreve 1.5%] 1 drop OU BID #1 drops 12/30/18 Unknown Rx Cetirizine HCl [ZyrTEC] 10 mg PO DAILY #30 tab.rapdis 12/30/18 Unknown Rx Fluticasone [Flonase] 1 spray NS QDAY #1 bottle 12/30/18 Unknown Rx Naproxen [Naprosyn] 500 mg PO BID #20 tablet 03/09/19 Unknown Rx methOCARBAMOL [Robaxin TAB] 500 mg PO Q8HR PRN #20 tablet 03/09/19 Unknown Rx predniSONE [Deltasone] 50 mg PO QDAY #5 tab 03/09/19 Unknown Rx traMADoL [Ultram] 50 mg PO Q6HR PRN #7 tablet 03/09/19 Unknown Rx Ketorolac [Toradol] 10 mg PO Q6H PRN #15 tablet 06/14/19 Unknown Rx methOCARBAMOL [Robaxin] 750 mg PO Q8H PRN #21 tablet 06/14/19 Unknown Rx predniSONE [Deltasone] 50 mg PO QDAY #5 tab 06/14/19 Unknown Rx Doxycycline Hyclate [Doxycycline 100 mg PO BID 7 Days #14 tab 07/19/19 Unknown Rx Hyclate TAB] Mupirocin [Bactroban 2% OINT] 1 applic TP TID #1 tube 07/19/19 Unknown Rx Famotidine [Pepcid] 20 mg PO BID 5 Days #10 tablet 10/11/19 Unknown Rx Hydroxyzine HCl [hydrOXYzine] 50 mg PO Q6H PRN #24 tablet 10/11/19 Unknown Rx Triamcinolone 0.1% [Kenalog 0.1% 1 applic TP BID 10 Days #1 tube 10/11/19 Unknown Rx CREAM] predniSONE [Deltasone] 40 mg PO QDAY 5 Days #10 tab 10/11/19 Unknown Rx Allergies Allergy/AdvReac Type Severity Reaction Status Date / Time ampicillin Allergy Itching Verified 05/10/15 20:17 Abscess Boil HPI - HPI Chief Complaint: Skin Rash Stated Complaint: RASH/CHIN ITCHING/BURNING Duration: >1 Week Location: Other (chin) Severity: Moderate History: No Fever, No Pain, No Purulent Drainage, No Numbness, No Foreign Body, No Previous History, No Insect Bite Home Medications: Home Medications Medication Instructions Recorded Confirmed Last Taken Aspirin EC [Halfprin EC] 81 mg PO QDAY 03/01/15 08/10/15 Unknown Previous Rx's Medication Instructions Recorded Last Taken Type Acetaminophen/Codeine [Tylenol #3] 1 tab PO Q6H PRN #20 tab 11/14/15 Unknown Rx Cyclobenzaprine [Flexeril] 10 mg PO TID PRN #20 tablet 11/14/15 Unknown Rx Naproxen [Naprosyn TAB] 500 mg PO BID #30 tablet 11/14/15 Unknown Rx Azithromycin [Zithromax Z-YUMIKO] 250 mg PO QDAY #6 tablet 03/06/16 Unknown Rx Ibuprofen [Motrin] 800 mg PO Q8HR PRN #10 tablet 03/06/16 Unknown Rx Promethazine /Codeine 5 ml PO Q6H PRN #90 ml 03/06/16 Unknown Rx [Phenergan/Codeine 6.25-10 mg/5Ml] Cyclobenzaprine HCl [Flexeril 5 MG 5 mg PO TID #20 tab 05/18/16 Unknown Rx TAB] Ibuprofen [Motrin 800 MG tab] 800 mg PO Q8HR PRN #20 tablet 05/18/16 Unknown Rx Albuterol INH(or & Nicu Only) 2 puff IH QID PRN #1 inhalation 08/17/17 Unknown Rx [Proair] levoFLOXacin [Levaquin] 750 mg PO QDAY #7 tablet 08/17/17 Unknown Rx Nitrofurantoin Monohyd/M-Cryst 100 mg PO Q12H 3 Days #6 capsule 09/01/17 Unknown Rx [Macrobid 100 mg Capsule] Azithromycin [Zithromax Z-YUMIKO] 250 mg PO DAILY #6 tablet 05/14/18 Unknown Rx Benzonatate [Tessalon Perle] 100 mg PO Q8H PRN #20 capsule 05/14/18 Unknown Rx Loratadine (Nf) [Claritin] 10 mg PO DAILY #30 tablet 05/14/18 Unknown Rx Ibuprofen [Motrin] 600 mg PO Q8H PRN #20 tablet 08/04/18 Unknown Rx traMADoL [Ultram 50 MG tab] 50 mg PO Q6HR PRN 3 Days #12 tablet 11/18/18 Unknown Rx Bepotastine Besilate [Bepreve 1.5%] 1 drop OU BID #1 drops 12/30/18 Unknown Rx Cetirizine HCl [ZyrTEC] 10 mg PO DAILY #30 tab.rapdis 12/30/18 Unknown Rx Fluticasone [Flonase] 1 spray NS QDAY #1 bottle 12/30/18 Unknown Rx Naproxen [Naprosyn] 500 mg PO BID #20 tablet 03/09/19 Unknown Rx methOCARBAMOL [Robaxin TAB] 500 mg PO Q8HR PRN #20 tablet 03/09/19 Unknown Rx predniSONE [Deltasone] 50 mg PO QDAY #5 tab 03/09/19 Unknown Rx traMADoL [Ultram] 50 mg PO Q6HR PRN #7 tablet 03/09/19 Unknown Rx Ketorolac [Toradol] 10 mg PO Q6H PRN #15 tablet 06/14/19 Unknown Rx methOCARBAMOL [Robaxin] 750 mg PO Q8H PRN #21 tablet 06/14/19 Unknown Rx predniSONE [Deltasone] 50 mg PO QDAY #5 tab 06/14/19 Unknown Rx Doxycycline Hyclate [Doxycycline 100 mg PO BID 7 Days #14 tab 07/19/19 Unknown Rx Hyclate TAB] Mupirocin [Bactroban 2% OINT] 1 applic TP TID #1 tube 07/19/19 Unknown Rx Famotidine [Pepcid] 20 mg PO BID 5 Days #10 tablet 10/11/19 Unknown Rx Hydroxyzine HCl [hydrOXYzine] 50 mg PO Q6H PRN #24 tablet 10/11/19 Unknown Rx Triamcinolone 0.1% [Kenalog 0.1% 1 applic TP BID 10 Days #1 tube 10/11/19 Unknown Rx CREAM] predniSONE [Deltasone] 40 mg PO QDAY 5 Days #10 tab 10/11/19 Unknown Rx Allergies/Adverse Reactions: Allergies Allergy/AdvReac Type Severity Reaction Status Date / Time ampicillin Allergy Itching Verified 05/10/15 20:17 ED Review of Systems ROS: Stated complaint: RASH/CHIN ITCHING/BURNING Other details as noted in HPI Comment: All other systems reviewed and negative Constitutional: denies: chills, fever ENT: denies: ear pain, throat pain Respiratory: denies: cough Cardiovascular: denies: chest pain, palpitations Skin: rash (dry patchy cracked skin ) Neurological: denies: as per HPI Hematological/Lymphatic: denies: as per HPI ED Past Medical Hx - Past Medical History Hx CVA: Yes (2009- NO RESIDUAL) Hx Congestive Heart Failure: No Hx Diabetes: No Hx Arthritis: Yes Hx Headaches / Migraines: Yes Hx Psychiatric Treatment: Yes (depression) Hx Asthma: No Hx COPD: No Hx HIV: No - Surgical History Hx Appendectomy: Yes Additional Surgical History: hysterectomy, left ankle surgery, left carotid endarterectomy - Social History Smoking Status: Current Every Day Smoker Substance Use Type: None - Medications Home Medications: Home Medications Medication Instructions Recorded Confirmed Last Taken Type Aspirin EC [Halfprin EC] 81 mg PO QDAY 03/01/15 08/10/15 Unknown History Acetaminophen/Codeine [Tylenol #3] 1 tab PO Q6H PRN #20 tab 11/14/15 Unknown Rx Cyclobenzaprine [Flexeril] 10 mg PO TID PRN #20 tablet 11/14/15 Unknown Rx Naproxen [Naprosyn TAB] 500 mg PO BID #30 tablet 11/14/15 Unknown Rx Azithromycin [Zithromax Z-YUMIKO] 250 mg PO QDAY #6 tablet 03/06/16 Unknown Rx Ibuprofen [Motrin] 800 mg PO Q8HR PRN #10 tablet 03/06/16 Unknown Rx Promethazine /Codeine 5 ml PO Q6H PRN #90 ml 03/06/16 Unknown Rx [Phenergan/Codeine 6.25-10 mg/5Ml] Cyclobenzaprine HCl [Flexeril 5 MG 5 mg PO TID #20 tab 05/18/16 Unknown Rx TAB] Ibuprofen [Motrin 800 MG tab] 800 mg PO Q8HR PRN #20 tablet 05/18/16 Unknown Rx Albuterol INH(or & Nicu Only) 2 puff IH QID PRN #1 inhalation 08/17/17 Unknown Rx [Proair] levoFLOXacin [Levaquin] 750 mg PO QDAY #7 tablet 08/17/17 Unknown Rx Nitrofurantoin Monohyd/M-Cryst 100 mg PO Q12H 3 Days #6 capsule 09/01/17 Unknown Rx [Macrobid 100 mg Capsule] Azithromycin [Zithromax Z-YUMIKO] 250 mg PO DAILY #6 tablet 05/14/18 Unknown Rx Benzonatate [Tessalon Perle] 100 mg PO Q8H PRN #20 capsule 05/14/18 Unknown Rx Loratadine (Nf) [Claritin] 10 mg PO DAILY #30 tablet 05/14/18 Unknown Rx Ibuprofen [Motrin] 600 mg PO Q8H PRN #20 tablet 08/04/18 Unknown Rx traMADoL [Ultram 50 MG tab] 50 mg PO Q6HR PRN 3 Days #12 tablet 11/18/18 Unknown Rx Bepotastine Besilate [Bepreve 1.5%] 1 drop OU BID #1 drops 12/30/18 Unknown Rx Cetirizine HCl [ZyrTEC] 10 mg PO DAILY #30 tab.rapdis 12/30/18 Unknown Rx Fluticasone [Flonase] 1 spray NS QDAY #1 bottle 12/30/18 Unknown Rx Naproxen [Naprosyn] 500 mg PO BID #20 tablet 03/09/19 Unknown Rx methOCARBAMOL [Robaxin TAB] 500 mg PO Q8HR PRN #20 tablet 03/09/19 Unknown Rx predniSONE [Deltasone] 50 mg PO QDAY #5 tab 03/09/19 Unknown Rx traMADoL [Ultram] 50 mg PO Q6HR PRN #7 tablet 03/09/19 Unknown Rx Ketorolac [Toradol] 10 mg PO Q6H PRN #15 tablet 06/14/19 Unknown Rx methOCARBAMOL [Robaxin] 750 mg PO Q8H PRN #21 tablet 06/14/19 Unknown Rx predniSONE [Deltasone] 50 mg PO QDAY #5 tab 06/14/19 Unknown Rx Doxycycline Hyclate [Doxycycline 100 mg PO BID 7 Days #14 tab 07/19/19 Unknown Rx Hyclate TAB] Mupirocin [Bactroban 2% OINT] 1 applic TP TID #1 tube 07/19/19 Unknown Rx Famotidine [Pepcid] 20 mg PO BID 5 Days #10 tablet 10/11/19 Unknown Rx Hydroxyzine HCl [hydrOXYzine] 50 mg PO Q6H PRN #24 tablet 10/11/19 Unknown Rx Triamcinolone 0.1% [Kenalog 0.1% 1 applic TP BID 10 Days #1 tube 10/11/19 Unknown Rx CREAM] predniSONE [Deltasone] 40 mg PO QDAY 5 Days #10 tab 10/11/19 Unknown Rx ED Physical Exam - General Limitations: No Limitations General appearance: alert, in no apparent distress - Head Head exam: Present: atraumatic - Eye Eye exam: Present: normal appearance - ENT ENT exam: Present: mucous membranes moist, TM's normal bilaterally, other (chin with dry patchy cracked coarse skin . no drainage , no erythema no warmth) - Neck Neck exam: Present: normal inspection - Respiratory Respiratory exam: Present: normal lung sounds bilaterally. Absent: respiratory distress, wheezes, rales, rhonchi - Cardiovascular Cardiovascular Exam: Present: regular rate - GI/Abdominal GI/Abdominal exam: Absent: soft - External exam: Present: normal external exam - Extremities Exam Extremities exam: Present: normal inspection - Neurological Exam Neurological exam: Present: alert - Psychiatric Psychiatric exam: Present: normal affect - Skin Skin exam: Present: dry. Absent: warm ED Course Vital Signs 10/11/19 10/11/19 10/11/19 08:57 09:01 14:12 Temperature 97.4 F L Pulse Rate 83 85 Respiratory 18 Rate Blood Pressure 119/78 O2 Sat by Pulse 98 96 Oximetry ED Medical Decision Making - Medical Decision Making This 58-year-old female presented to the ER with complaint of ongoing irritation and itching and dry A/. Patient was seen in this emergency room back in June after using and use the shave her. She was treated for cellulitis of the chin with Bactroban and oral antibiotics. Her symptoms she said it initially improved but she has ongoing itching dry patchy skin irritation. This appears to be a contact dermatitis plan to treat patient with topical steroids 5 days of prednisone orally hydroxyzine for the itching and follow up with primary care doctor in a week Critical Care Time: No Critical care attestation.: If time is entered above; I have spent that time in minutes in the direct care of this critically ill patient, excluding procedure time. ED Disposition Clinical Impression: Contact dermatitis Qualifiers: Contact dermatitis type: irritant Contact dermatitis trigger: metal Qualified Code(s): L24.81 - Irritant contact dermatitis due to metals Disposition: DC- TO HOME OR SELFCARE Is pt being admited?: No Does the pt Need Aspirin: No Condition: Stable Instructions: Contact Dermatitis (ED) Prescriptions: predniSONE [Deltasone] 40 mg PO QDAY 5 Days #10 tab Hydroxyzine HCl [hydrOXYzine] 50 mg PO Q6H PRN #24 tablet PRN Reason: Itching Triamcinolone 0.1% [Kenalog 0.1% CREAM] 1 applic TP BID 10 Days #1 tube Famotidine [Pepcid] 20 mg PO BID 5 Days #10 tablet Referrals: PRIMARY CARE, [Primary Care Provider] - 3-5 Days Time of Disposition: 13:59
== END 2019-10-11 14:11 | disposition home or self-care (01) ==
LOC: ED 08:48
DX: L25.9 Unspecified contact dermatitis, unspecified cause (principal); M19.90 Unspecified osteoarthritis, unspecified site; G43.909 Migraine, unspecified, not intractable, without status migrainosus; F32.9 Major depressive disorder, single episode, unspecified; F17.200 Nicotine dependence, unspecified, uncomplicated; Z86.73 Personal history of transient ischemic attack (TIA), and cerebral infarction without residual deficits; Z90.710 Acquired absence of both cervix and uterus; Z79.899 Other long term (current) drug therapy; Z88.1 Allergy status to other antibiotic agents

== ENCOUNTER 2020-11-02 14:57 | Emergency (ER) | payer SELFPAY ==
[2020-11-02 15:08] VITALS: BP 185/99
--- NOTE | 2020-11-02 15:26 | Emergency Department Report ---
ED Upper Extremity Inj HPI - General Chief Complaint: Extremity Injury, Upper Stated Complaint: RT HAND CHECK UP Time Seen by Provider: 11/02/20 15:08 Source: patient Mode of arrival: Ambulatory Limitations: No Limitations - History of Present Illness Initial Comments: This pleasant 59-year-old female presents the emergency department chief complaint of right hand pain. Patient reports had a fall 2 weeks ago and was seen in an emergency department and was told she had a fracture and splinted. She followed up with the urgent care and they said there was not a fracture. She states she still having pain and is unable to afford seeing an orthopedist and needs to go back to work but is unable to work due to her being right-handed and the splint being on her right hand. She denies any other injuries. She denies any associated fever, chills, night sweats, headache, dizziness, blurry vision, nausea, vomit, diarrhea, chest pain, shortness of breath or any other associated symptoms. - Related Data Home Medications Medication Instructions Recorded Confirmed Last Taken Aspirin EC [Halfprin EC] 81 mg PO QDAY 03/01/15 08/10/15 Unknown Previous Rx's Medication Instructions Recorded Last Taken Type Acetaminophen/Codeine [Tylenol #3] 1 tab PO Q6H PRN #20 tab 11/14/15 Unknown Rx Cyclobenzaprine [Flexeril] 10 mg PO TID PRN #20 tablet 11/14/15 Unknown Rx Naproxen [Naprosyn TAB] 500 mg PO BID #30 tablet 11/14/15 Unknown Rx Azithromycin [Zithromax Z-YUMIKO] 250 mg PO QDAY #6 tablet 03/06/16 Unknown Rx Ibuprofen [Motrin] 800 mg PO Q8HR PRN #10 tablet 03/06/16 Unknown Rx Promethazine /Codeine 5 ml PO Q6H PRN #90 ml 03/06/16 Unknown Rx [Phenergan/Codeine 6.25-10 mg/5Ml] Cyclobenzaprine HCl [Flexeril 5 MG 5 mg PO TID #20 tab 05/18/16 Unknown Rx TAB] Ibuprofen [Motrin 800 MG tab] 800 mg PO Q8HR PRN #20 tablet 05/18/16 Unknown Rx Albuterol Mdi (or & Nicu Only) 2 puff IH QID PRN #1 inhalation 11/25/17 Unknown Rx [Proair] levoFLOXacin [Levaquin] 750 mg PO QDAY #7 tablet 08/17/17 Unknown Rx Nitrofurantoin Monohyd/M-Cryst 100 mg PO Q12H 3 Days #6 capsule 09/01/17 Unknown Rx [Macrobid 100 mg Capsule] Azithromycin [Zithromax Z-YUMIKO] 250 mg PO DAILY #6 tablet 05/14/18 Unknown Rx Benzonatate [Tessalon Perle] 100 mg PO Q8H PRN #20 capsule 05/14/18 Unknown Rx Loratadine (Nf) [Claritin] 10 mg PO DAILY #30 tablet 05/14/18 Unknown Rx Ibuprofen [Motrin] 600 mg PO Q8H PRN #20 tablet 08/04/18 Unknown Rx traMADoL [Ultram 50 MG tab] 50 mg PO Q6HR PRN 3 Days #12 tablet 11/18/18 Unknown Rx Bepotastine Besilate [Bepreve 1.5%] 1 drop OU BID #1 drops 12/30/18 Unknown Rx Cetirizine HCl [ZyrTEC] 10 mg PO DAILY #30 tab.rapdis 12/30/18 Unknown Rx Fluticasone [Flonase] 1 spray NS QDAY #1 bottle 12/30/18 Unknown Rx Naproxen [Naprosyn] 500 mg PO BID #20 tablet 03/09/19 Unknown Rx methOCARBAMOL [Robaxin TAB] 500 mg PO Q8HR PRN #20 tablet 03/09/19 Unknown Rx predniSONE [Deltasone] 50 mg PO QDAY #5 tab 03/09/19 Unknown Rx traMADoL [Ultram] 50 mg PO Q6HR PRN #7 tablet 03/09/19 Unknown Rx Ketorolac [Toradol] 10 mg PO Q6H PRN #15 tablet 06/14/19 Unknown Rx methOCARBAMOL [Robaxin] 750 mg PO Q8H PRN #21 tablet 06/14/19 Unknown Rx predniSONE [Deltasone] 50 mg PO QDAY #5 tab 06/14/19 Unknown Rx Doxycycline Hyclate [Doxycycline 100 mg PO BID 7 Days #14 tab 07/19/19 Unknown Rx Hyclate TAB] Mupirocin [Bactroban 2% OINT] 1 applic TP TID #1 tube 07/19/19 Unknown Rx Famotidine [Pepcid] 20 mg PO BID 5 Days #10 tablet 10/11/19 Unknown Rx Hydroxyzine HCl [hydrOXYzine] 50 mg PO Q6H PRN #24 tablet 10/11/19 Unknown Rx Triamcinolone 0.1% [Kenalog 0.1% 1 applic TP BID 10 Days #1 tube 10/11/19 Unknown Rx CREAM] predniSONE [Deltasone] 40 mg PO QDAY 5 Days #10 tab 10/11/19 Unknown Rx Allergies Allergy/AdvReac Type Severity Reaction Status Date / Time ampicillin Allergy Itching Verified 05/10/15 20:17 ED Review of Systems ROS: Stated complaint: RT HAND CHECK UP Other details as noted in HPI Comment: All other systems reviewed and negative Constitutional: denies: chills, fever Eyes: denies: eye pain, eye discharge, vision change ENT: denies: ear pain, throat pain Respiratory: denies: cough, shortness of breath, wheezing Cardiovascular: denies: chest pain, palpitations Endocrine: no symptoms reported Gastrointestinal: denies: abdominal pain, nausea, diarrhea Genitourinary: denies: urgency, dysuria, discharge Musculoskeletal: arthralgia. denies: back pain, joint swelling Skin: denies: rash, lesions Neurological: denies: headache, weakness, paresthesias Psychiatric: denies: anxiety, depression Hematological/Lymphatic: denies: easy bleeding, easy bruising ED Past Medical Hx - Past Medical History Previous Medical History?: Yes Hx CVA: Yes (2009- NO RESIDUAL) Hx Congestive Heart Failure: No Hx Diabetes: No Hx Arthritis: Yes Hx Headaches / Migraines: Yes Hx Psychiatric Treatment: Yes (depression) Hx Asthma: No Hx COPD: No Hx HIV: No - Surgical History Past Surgical History?: Yes Hx Appendectomy: Yes Additional Surgical History: hysterectomy, left ankle surgery, left carotid en darterectomy - Social History Smoking Status: Current Every Day Smoker Substance Use Type: None - Medications Home Medications: Home Medications Medication Instructions Recorded Confirmed Last Taken Type Aspirin EC [Halfprin EC] 81 mg PO QDAY 03/01/15 08/10/15 Unknown History Acetaminophen/Codeine [Tylenol #3] 1 tab PO Q6H PRN #20 tab 11/14/15 Unknown Rx Cyclobenzaprine [Flexeril] 10 mg PO TID PRN #20 tablet 11/14/15 Unknown Rx Naproxen [Naprosyn TAB] 500 mg PO BID #30 tablet 11/14/15 Unknown Rx Azithromycin [Zithromax Z-YUMIKO] 250 mg PO QDAY #6 tablet 03/06/16 Unknown Rx Ibuprofen [Motrin] 800 mg PO Q8HR PRN #10 tablet 03/06/16 Unknown Rx Promethazine /Codeine 5 ml PO Q6H PRN #90 ml 03/06/16 Unknown Rx [Phenergan/Codeine 6.25-10 mg/5Ml] Cyclobenzaprine HCl [Flexeril 5 MG 5 mg PO TID #20 tab 05/18/16 Unknown Rx TAB] Ibuprofen [Motrin 800 MG tab] 800 mg PO Q8HR PRN #20 tablet 05/18/16 Unknown Rx Albuterol Mdi (or & Nicu Only) 2 puff IH QID PRN #1 inhalation 08/17/17 Unknown Rx [Proair] levoFLOXacin [Levaquin] 750 mg PO QDAY #7 tablet 08/17/17 Unknown Rx Nitrofurantoin Monohyd/M-Cryst 100 mg PO Q12H 3 Days #6 capsule 09/01/17 Unknown Rx [Macrobid 100 mg Capsule] Azithromycin [Zithromax Z-YUMIKO] 250 mg PO DAILY #6 tablet 05/14/18 Unknown Rx Benzonatate [Tessalon Perle] 100 mg PO Q8H PRN #20 capsule 05/14/18 Unknown Rx Loratadine (Nf) [Claritin] 10 mg PO DAILY #30 tablet 05/14/18 Unknown Rx Ibuprofen [Motrin] 600 mg PO Q8H PRN #20 tablet 08/04/18 Unknown Rx traMADoL [Ultram 50 MG tab] 50 mg PO Q6HR PRN 3 Days #12 tablet 11/18/18 Unknown Rx Bepotastine Besilate [Bepreve 1.5%] 1 drop OU BID #1 drops 12/30/18 Unknown Rx Cetirizine HCl [ZyrTEC] 10 mg PO DAILY #30 tab.rapdis 12/30/18 Unknown Rx Fluticasone [Flonase] 1 spray NS QDAY #1 bottle 12/30/18 Unknown Rx Naproxen [Naprosyn] 500 mg PO BID #20 tablet 03/09/19 Unknown Rx methOCARBAMOL [Robaxin TAB] 500 mg PO Q8HR PRN #20 tablet 03/09/19 Unknown Rx predniSONE [Deltasone] 50 mg PO QDAY #5 tab 03/09/19 Unknown Rx traMADoL [Ultram] 50 mg PO Q6HR PRN #7 tablet 03/09/19 Unknown Rx Ketorolac [Toradol] 10 mg PO Q6H PRN #15 tablet 06/14/19 Unknown Rx methOCARBAMOL [Robaxin] 750 mg PO Q8H PRN #21 tablet 06/14/19 Unknown Rx predniSONE [Deltasone] 50 mg PO QDAY #5 tab 06/14/19 Unknown Rx Doxycycline Hyclate [Doxycycline 100 mg PO BID 7 Days #14 tab 07/19/19 Unknown Rx Hyclate TAB] Mupirocin [Bactroban 2% OINT] 1 applic TP TID #1 tube 07/19/19 Unknown Rx Famotidine [Pepcid] 20 mg PO BID 5 Days #10 tablet 10/11/19 Unknown Rx Hydroxyzine HCl [hydrOXYzine] 50 mg PO Q6H PRN #24 tablet 10/11/19 Unknown Rx Triamcinolone 0.1% [Kenalog 0.1% 1 applic TP BID 10 Days #1 tube 10/11/19 Unknown Rx CREAM] predniSONE [Deltasone] 40 mg PO QDAY 5 Days #10 tab 10/11/19 Unknown Rx ED Physical Exam - General Limitations: No Limitations General appearance: alert, in no apparent distress - Head Head exam: Present: atraumatic, normocephalic - Eye Eye exam: Present: normal appearance, PERRL, EOMI Pupils: Present: normal accommodation - ENT ENT exam: Present: normal exam, normal orophraynx, mucous membranes moist - Neck Neck exam: Present: normal inspection. Absent: tenderness, meningismus - Respiratory Respiratory exam: Present: normal lung sounds bilaterally. Absent: respiratory distress, chest wall tenderness - Cardiovascular Cardiovascular Exam: Present: regular rate, normal rhythm, normal heart sounds. Absent: systolic murmur, diastolic murmur, rubs, gallop - GI/Abdominal GI/Abdominal exam: Present: soft, normal bowel sounds. Absent: distended, tenderness, guarding, rebound, rigid - Extremities Exam Extremities exam: Present: normal inspection, full ROM, tenderness (Mild tenderness over the MCP of the second and third digit on the right hand. Normal distalization capillary refill. Full active range of motion at DIP PIP and MCP joint of the hand. No anatomical snuffbox tenderness. No tenderness of the wrist. Normal distal sensation capillary refill.) - Back Exam Back exam: Present: normal inspection, full ROM. Absent: tenderness - Neurological Exam Neurological exam: Present: alert, oriented X3, normal gait - Psychiatric Psychiatric exam: Present: normal affect, normal mood - Skin Skin exam: Present: warm, dry, intact, normal color. Absent: rash ED Course Vital Signs 11/02/20 15:04 Temperature 98.6 F Pulse Rate 100 H Respiratory 16 Rate Blood Pressure 185/99 O2 Sat by Pulse 98 Oximetry ED Medical Decision Making - Radiology Data Radiology results: report reviewed, image reviewed XRay Report Signed Patient: SAKINA CAZARES MR#: [id number] : 1960 Acct:[id number] Age/Sex: 59 / F ADM Date: 11/02/20 Loc: ED Attending Dr: Ordering Physician: JOSE CLEANING Date of Service: 11/02/20 Procedure(s): XR hand 2V RT Accession Number(s): [id number] cc: JOSE CLEANING Fluoro Time In Minutes: RIGHT HAND 2 VIEW(S) INDICATION / CLINICAL INFORMATION: fall, pain COMPARISON: None available. FINDINGS: BONES / JOINT(S): No acute fracture or subluxation. 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 SOFT TISSUES: No significant abnormality. ADDITIONAL FINDINGS: None. IMPRESSION: No acute osseous findings of the right hand. Signer Name: Rosalind Jackson MD Signed: 11/02/2020 3:53 PM Workstation Name: [id number] Transcribed By: JS Dictated By: ROSALIND JACKSON MD Electronically Authenticated By: ROSALIND JACKSON MD Signed Date/Time: 11/02/20 8487 - Medical Decision Making X-ray is negative for acute findings. I still recommended the patient that she follow-up with an orthopedist to have a proper evaluation. Splint was removed and recommended immobilization however the patient politely declined and wanted a brace instead. Recommend she follow-up she verbalized understand the diagnosis, treatment plan and follow-up instructions and all of her questions were answered. - Differential Diagnosis sprain, strain, fracture Critical care attestation.: If time is entered above; I have spent that time in minutes in the direct care of this critically ill patient, excluding procedure time. ED Disposition Clinical Impression: Contusion of right wrist Qualifiers: Encounter type: initial encounter Qualified Code(s): S60.211A - Contusion of right wrist, initial encounter Disposition: DC-01 TO HOME OR SELFCARE Is pt being admited?: No Condition: Stable Referrals: JULIANN LYNN MD [Staff Physician] - 3-5 Days Forms: Work/School Release Form(ED) Time of Disposition: 16:22
--- NOTE | 2020-11-02 15:57 | XRay Report ---
RIGHT HAND 2 VIEW(S) INDICATION / CLINICAL INFORMATION: fall, pain COMPARISON: None available. FINDINGS: BONES / JOINT(S): No acute fracture or subluxation. Moderate scattered osteoarthritis of the right [place], most pronounced at the thumb CMC joint. SOFT TISSUES: No significant abnormality. ADDITIONAL FINDINGS: None. IMPRESSION: No acute osseous findings of the right hand. Signer Name: Obie Jackson MD Signed: 11/02/2020 3:53 PM Workstation Name: [id number]
== END 2020-11-02 16:39 | disposition home or self-care (01) ==
LOC: ED 14:57
DX: S60.211A Contusion of right wrist, initial encounter (principal); M19.90 Unspecified osteoarthritis, unspecified site; F32.9 Major depressive disorder, single episode, unspecified; F17.200 Nicotine dependence, unspecified, uncomplicated; Z86.73 Personal history of transient ischemic attack (TIA), and cerebral infarction without residual deficits; Z90.710 Acquired absence of both cervix and uterus; Z98.890 Other specified postprocedural states; Z90.49 Acquired absence of other specified parts of digestive tract; Z79.82 Long term (current) use of aspirin; Z79.899 Other long term (current) drug therapy; Z88.1 Allergy status to other antibiotic agents; X58.XXXA Exposure to other specified factors, initial encounter; Y93.89 Activity, other specified; Y92.89 Other specified places as the place of occurrence of the external cause; Y99.8 Other external cause status
CPT/HCPCS: 99283

== ENCOUNTER 2020-12-25 01:37 | Emergency (ER) | payer SELFPAY ==
[2020-12-25 02:16] VITALS: BP 163/100
--- NOTE | 2020-12-25 02:47 | Emergency Department Report ---
ED ENT HPI - General Chief complaint: Dental/Oral Stated complaint: TOOTHACHE/MOUTH SWOLLEN/NAUSEA Time Seen by Provider: 12/25/20 02:29 Source: patient Mode of arrival: Ambulatory Limitations: No Limitations - History of Present Illness Initial comments: Patient is a 60-year-old female presents emergency room complaints of left lower dental pain that began a few days ago. She states that she has a broken tooth present in that region. She states that she has noticed some left lower jaw swelling. She has associated nausea. She states that she last saw a dentist approximately a year ago. She states that she needs to have a tooth extraction performed. She denies any fever, vomiting, difficulty swallowing, difficulty breathing. Past medical history of arthritis, CVA, migraines, depression. Allergy to ampicillin, she states that she can take penicillin with no issues. - Related Data Home Medications Medication Instructions Recorded Confirmed Last Taken Aspirin EC [Halfprin EC] 81 mg PO QDAY 03/01/15 08/10/15 Unknown Previous Rx's Medication Instructions Recorded Last Taken Type Acetaminophen/Codeine [Tylenol #3] 1 tab PO Q6H PRN #20 tab 11/14/15 Unknown Rx Cyclobenzaprine [Flexeril] 10 mg PO TID PRN #20 tablet 11/14/15 Unknown Rx Naproxen [Naprosyn TAB] 500 mg PO BID #30 tablet 11/14/15 Unknown Rx Azithromycin [Zithromax Z-YUMIKO] 250 mg PO QDAY #6 tablet 03/06/16 Unknown Rx Ibuprofen [Motrin] 800 mg PO Q8HR PRN #10 tablet 03/06/16 Unknown Rx Promethazine /Codeine 5 ml PO Q6H PRN #90 ml 03/06/16 Unknown Rx [Phenergan/Codeine 6.25-10 mg/5Ml] Cyclobenzaprine HCl [Flexeril 5 MG 5 mg PO TID #20 tab 05/18/16 Unknown Rx TAB] Ibuprofen [Motrin 800 MG tab] 800 mg PO Q8HR PRN #20 tablet 05/18/16 Unknown Rx Albuterol Mdi (or & Nicu Only) 2 puff IH QID PRN #1 inhalation 08/17/17 Unknown Rx [Proair] levoFLOXacin [Levaquin] 750 mg PO QDAY #7 tablet 08/17/17 Unknown Rx Nitrofurantoin Monohyd/M-Cryst 100 mg PO Q12H 3 Days #6 capsule 09/01/17 Unknown Rx [Macrobid 100 mg Capsule] Azithromycin [Zithromax Z-YUMIKO] 250 mg PO DAILY #6 tablet 05/14/18 Unknown Rx Benzonatate [Tessalon Perle] 100 mg PO Q8H PRN #20 capsule 05/14/18 Unknown Rx Loratadine (Nf) [Claritin] 10 mg PO DAILY #30 tablet 05/14/18 Unknown Rx Ibuprofen [Motrin] 600 mg PO Q8H PRN #20 tablet 08/04/18 Unknown Rx traMADoL [Ultram 50 MG tab] 50 mg PO Q6HR PRN 3 Days #12 tablet 11/18/18 Unknown Rx Bepotastine Besilate [Bepreve 1.5%] 1 drop OU BID #1 drops 12/30/18 Unknown Rx Cetirizine HCl [ZyrTEC] 10 mg PO DAILY #30 tab.rapdis 12/30/18 Unknown Rx Fluticasone [Flonase] 1 spray NS QDAY #1 bottle 12/30/18 Unknown Rx Naproxen [Naprosyn] 500 mg PO BID #20 tablet 03/09/19 Unknown Rx methOCARBAMOL [Robaxin TAB] 500 mg PO Q8HR PRN #20 tablet 03/09/19 Unknown Rx predniSONE [Deltasone] 50 mg PO QDAY #5 tab 03/09/19 Unknown Rx traMADoL [Ultram] 50 mg PO Q6HR PRN #7 tablet 03/09/19 Unknown Rx Ketorolac [Toradol] 10 mg PO Q6H PRN #15 tablet 06/14/19 Unknown Rx methOCARBAMOL [Robaxin] 750 mg PO Q8H PRN #21 tablet 06/14/19 Unknown Rx predniSONE [Deltasone] 50 mg PO QDAY #5 tab 06/14/19 Unknown Rx Doxycycline Hyclate [Doxycycline 100 mg PO BID 7 Days #14 tab 07/19/19 Unknown Rx Hyclate TAB] Mupirocin [Bactroban 2% OINT] 1 applic TP TID #1 tube 07/19/19 Unknown Rx Famotidine [Pepcid] 20 mg PO BID 5 Days #10 tablet 10/11/19 Unknown Rx Hydroxyzine HCl [hydrOXYzine] 50 mg PO Q6H PRN #24 tablet 10/11/19 Unknown Rx Triamcinolone 0.1% [Kenalog 0.1% 1 applic TP BID 10 Days #1 tube 10/11/19 Unknown Rx CREAM] predniSONE [Deltasone] 40 mg PO QDAY 5 Days #10 tab 10/11/19 Unknown Rx Chlorhexidine Mouthwash [Peridex] 15 ml MM BID #1 bottle 12/25/20 Unknown Rx Naproxen 375 mg PO BID PRN #14 tablet. 12/25/20 Unknown Rx Penicillin Vk [Veetids TAB] 500 mg PO QID 7 Days #56 tablet 12/25/20 Unknown Rx Allergies Allergy/AdvReac Type Severity Reaction Status Date / Time ampicillin Allergy Itching Verified 05/10/15 20:17 ED Dental HPI - General Chief complaint: Dental/Oral Stated complaint: TOOTHACHE/MOUTH SWOLLEN/NAUSEA Time Seen by Provider: 12/25/20 02:29 Source: patient Mode of arrival: Ambulatory Limitations: No Limitations - Related Data Home Medications Medication Instructions Recorded Confirmed Last Taken Aspirin EC [Halfprin EC] 81 mg PO QDAY 03/01/15 08/10/15 Unknown Previous Rx's Medication Instructions Recorded Last Taken Type Acetaminophen/Codeine [Tylenol #3] 1 tab PO Q6H PRN #20 tab 11/14/15 Unknown Rx Cyclobenzaprine [Flexeril] 10 mg PO TID PRN #20 tablet 11/14/15 Unknown Rx Naproxen [Naprosyn TAB] 500 mg PO BID #30 tablet 11/14/15 Unknown Rx Azithromycin [Zithromax Z-YUMIKO] 250 mg PO QDAY #6 tablet 03/06/16 Unknown Rx Ibuprofen [Motrin] 800 mg PO Q8HR PRN #10 tablet 03/06/16 Unknown Rx Promethazine /Codeine 5 ml PO Q6H PRN #90 ml 03/06/16 Unknown Rx [Phenergan/Codeine 6.25-10 mg/5Ml] Cyclobenzaprine HCl [Flexeril 5 MG 5 mg PO TID #20 tab 05/18/16 Unknown Rx TAB] Ibuprofen [Motrin 800 MG tab] 800 mg PO Q8HR PRN #20 tablet 05/18/16 Unknown Rx Albuterol Mdi (or & Nicu Only) 2 puff IH QID PRN #1 inhalation 11/25/17 Unknown Rx [Proair] levoFLOXacin [Levaquin] 750 mg PO QDAY #7 tablet 08/17/17 Unknown Rx Nitrofurantoin Monohyd/M-Cryst 100 mg PO Q12H 3 Days #6 capsule 09/01/17 Unknown Rx [Macrobid 100 mg Capsule] Azithromycin [Zithromax Z-YUMIKO] 250 mg PO DAILY #6 tablet 05/14/18 Unknown Rx Benzonatate [Tessalon Perle] 100 mg PO Q8H PRN #20 capsule 05/14/18 Unknown Rx Loratadine (Nf) [Claritin] 10 mg PO DAILY #30 tablet 05/14/18 Unknown Rx Ibuprofen [Motrin] 600 mg PO Q8H PRN #20 tablet 08/04/18 Unknown Rx traMADoL [Ultram 50 MG tab] 50 mg PO Q6HR PRN 3 Days #12 tablet 11/18/18 Unknown Rx Bepotastine Besilate [Bepreve 1.5%] 1 drop OU BID #1 drops 12/30/18 Unknown Rx Cetirizine HCl [ZyrTEC] 10 mg PO DAILY #30 tab.rapdis 12/30/18 Unknown Rx Fluticasone [Flonase] 1 spray NS QDAY #1 bottle 12/30/18 Unknown Rx Naproxen [Naprosyn] 500 mg PO BID #20 tablet 03/09/19 Unknown Rx methOCARBAMOL [Robaxin TAB] 500 mg PO Q8HR PRN #20 tablet 03/09/19 Unknown Rx predniSONE [Deltasone] 50 mg PO QDAY #5 tab 03/09/19 Unknown Rx traMADoL [Ultram] 50 mg PO Q6HR PRN #7 tablet 03/09/19 Unknown Rx Ketorolac [Toradol] 10 mg PO Q6H PRN #15 tablet 06/14/19 Unknown Rx methOCARBAMOL [Robaxin] 750 mg PO Q8H PRN #21 tablet 06/14/19 Unknown Rx predniSONE [Deltasone] 50 mg PO QDAY #5 tab 06/14/19 Unknown Rx Doxycycline Hyclate [Doxycycline 100 mg PO BID 7 Days #14 tab 07/19/19 Unknown Rx Hyclate TAB] Mupirocin [Bactroban 2% OINT] 1 applic TP TID #1 tube 07/19/19 Unknown Rx Famotidine [Pepcid] 20 mg PO BID 5 Days #10 tablet 10/11/19 Unknown Rx Hydroxyzine HCl [hydrOXYzine] 50 mg PO Q6H PRN #24 tablet 10/11/19 Unknown Rx Triamcinolone 0.1% [Kenalog 0.1% 1 applic TP BID 10 Days #1 tube 10/11/19 Unknown Rx CREAM] predniSONE [Deltasone] 40 mg PO QDAY 5 Days #10 tab 10/11/19 Unknown Rx Chlorhexidine Mouthwash [Peridex] 15 ml MM BID #1 bottle 12/25/20 Unknown Rx Naproxen 375 mg PO BID PRN #14 tablet. 12/25/20 Unknown Rx Penicillin Vk [Veetids TAB] 500 mg PO QID 7 Days #56 tablet 12/25/20 Unknown Rx Allergies Allergy/AdvReac Type Severity Reaction Status Date / Time ampicillin Allergy Itching Verified 05/10/15 20:17 ED Review of Systems ROS: Stated complaint: TOOTHACHE/MOUTH SWOLLEN/NAUSEA Other details as noted in HPI Comment: All other systems reviewed and negative ED Past Medical Hx - Past Medical History Previous Medical History?: Yes Hx CVA: Yes (2009- NO RESIDUAL) Hx Congestive Heart Failure: No Hx Diabetes: No Hx Arthritis: Yes Hx Headaches / Migraines: Yes Hx Psychiatric Treatment: Yes (depression) Hx Asthma: No Hx COPD: No Hx HIV: No - Surgical History Past Surgical History?: Yes Hx Appendectomy: Yes Additional Surgical History: hysterectomy, left ankle surgery, left carotid endarterectomy - Social History Smoking Status: Never Smoker Substance Use Type: None - Medications Home Medications: Home Medications Medication Instructions Recorded Confirmed Last Taken Type Aspirin EC [Halfprin EC] 81 mg PO QDAY 03/01/15 08/10/15 Unknown History Acetaminophen/Codeine [Tylenol #3] 1 tab PO Q6H PRN #20 tab 11/14/15 Unknown Rx Cyclobenzaprine [Flexeril] 10 mg PO TID PRN #20 tablet 11/14/15 Unknown Rx Naproxen [Naprosyn TAB] 500 mg PO BID #30 tablet 11/14/15 Unknown Rx Azithromycin [Zithromax Z-YUMIKO] 250 mg PO QDAY #6 tablet 03/06/16 Unknown Rx Ibuprofen [Motrin] 800 mg PO Q8HR PRN #10 tablet 03/06/16 Unknown Rx Promethazine /Codeine 5 ml PO Q6H PRN #90 ml 03/06/16 Unknown Rx [Phenergan/Codeine 6.25-10 mg/5Ml] Cyclobenzaprine HCl [Flexeril 5 MG 5 mg PO TID #20 tab 05/18/16 Unknown Rx TAB] Ibuprofen [Motrin 800 MG tab] 800 mg PO Q8HR PRN #20 tablet 05/18/16 Unknown Rx Albuterol Mdi (or & Nicu Only) 2 puff IH QID PRN #1 inhalation 08/17/17 Unknown Rx [Proair] levoFLOXacin [Levaquin] 750 mg PO QDAY #7 tablet 08/17/17 Unknown Rx Nitrofurantoin Monohyd/M-Cryst 100 mg PO Q12H 3 Days #6 capsule 09/01/17 Unknown Rx [Macrobid 100 mg Capsule] Azithromycin [Zithromax Z-YUMIKO] 250 mg PO DAILY #6 tablet 05/14/18 Unknown Rx Benzonatate [Tessalon Perle] 100 mg PO Q8H PRN #20 capsule 05/14/18 Unknown Rx Loratadine (Nf) [Claritin] 10 mg PO DAILY #30 tablet 05/14/18 Unknown Rx Ibuprofen [Motrin] 600 mg PO Q8H PRN #20 tablet 08/04/18 Unknown Rx traMADoL [Ultram 50 MG tab] 50 mg PO Q6HR PRN 3 Days #12 tablet 11/18/18 Unknown Rx Bepotastine Besilate [Bepreve 1.5%] 1 drop OU BID #1 drops 12/30/18 Unknown Rx Cetirizine HCl [ZyrTEC] 10 mg PO DAILY #30 tab.rapdis 12/30/18 Unknown Rx Fluticasone [Flonase] 1 spray NS QDAY #1 bottle 12/30/18 Unknown Rx Naproxen [Naprosyn] 500 mg PO BID #20 tablet 03/09/19 Unknown Rx methOCARBAMOL [Robaxin TAB] 500 mg PO Q8HR PRN #20 tablet 03/09/19 Unknown Rx predniSONE [Deltasone] 50 mg PO QDAY #5 tab 03/09/19 Unknown Rx traMADoL [Ultram] 50 mg PO Q6HR PRN #7 tablet 03/09/19 Unknown Rx Ketorolac [Toradol] 10 mg PO Q6H PRN #15 tablet 06/14/19 Unknown Rx methOCARBAMOL [Robaxin] 750 mg PO Q8H PRN #21 tablet 06/14/19 Unknown Rx predniSONE [Deltasone] 50 mg PO QDAY #5 tab 06/14/19 Unknown Rx Doxycycline Hyclate [Doxycycline 100 mg PO BID 7 Days #14 tab 07/19/19 Unknown Rx Hyclate TAB] Mupirocin [Bactroban 2% OINT] 1 applic TP TID #1 tube 07/19/19 Unknown Rx Famotidine [Pepcid] 20 mg PO BID 5 Days #10 tablet 10/11/19 Unknown Rx Hydroxyzine HCl [hydrOXYzine] 50 mg PO Q6H PRN #24 tablet 10/11/19 Unknown Rx Triamcinolone 0.1% [Kenalog 0.1% 1 applic TP BID 10 Days #1 tube 10/11/19 Unknown Rx CREAM] predniSONE [Deltasone] 40 mg PO QDAY 5 Days #10 tab 10/11/19 Unknown Rx Chlorhexidine Mouthwash [Peridex] 15 ml MM BID #1 bottle 12/25/20 Unknown Rx Naproxen 375 mg PO BID PRN #14 tablet. 12/25/20 Unknown Rx Penicillin Vk [Veetids TAB] 500 mg PO QID 7 Days #56 tablet 12/25/20 Unknown Rx ED Physical Exam - General Limitations: No Limitations General appearance: alert, in no apparent distress - Head Head exam: Present: atraumatic, normocephalic - Eye Eye exam: Present: normal appearance - ENT ENT exam: Present: normal orophraynx (no tongue elevation, no muffled voice, no submandibular edema), mucous membranes moist, other (multiple missing teeth from prior extractions, there is a dental carry with a broken tooth present to the left lower gumline at the cuspid, there is induration of the adjacent gumline and small amount of left lower jaw edema, uvula is midline, no uvular edema or deviation, no trismus) - Respiratory Respiratory exam: Absent: respiratory distress, accessory muscle use - Neurological Exam Neurological exam: Present: alert, oriented X3 - Psychiatric Psychiatric exam: Present: normal affect, normal mood - Skin Skin exam: Present: warm, dry, intact ED Course Vital Signs 12/25/20 02:14 Temperature 98.2 F Pulse Rate 98 H Respiratory 18 Rate Blood Pressure 163/100 O2 Sat by Pulse 98 Oximetry ED Medical Decision Making - Medical Decision Making Patient is a 60-year-old female presents emergency room complaints of left lower dental pain that began a few days ago. She states that she has a broken tooth present in that region. She states that she has noticed some left lower jaw swelling. She has associated nausea. She states that she last saw a dentist approximately a year ago. She states that she needs to have a tooth extraction performed. She denies any fever, vomiting, difficulty swallowing, difficulty breathing. Past medical history of arthritis, CVA, migraines, depression. Allergy to ampicillin, she states that she can take penicillin with no issues. Vitals are stable. On exam: multiple missing teeth from prior extractions, there is a dental carry with a broken tooth present to the left lower gumline at the cuspid, there is induration of the adjacent gumline and small amount of left lower jaw edema, uvula is midline, no uvular edema or deviation, no trismus, no tongue elevation, no muffled voice, no submandibular edema. Examination appears consistent with dental carry with associated dental abscess, no signs of facial cellulitis, facial abscess, Franklin's at this time. Patient given prescription for penicillin VK, chlorhexidine mouthwash, naproxen. Advised patient Please take medication as prescribed. Increase your water intake. Gargle with warm salt water. Follow-up with the dentist. It is very important that you follow- up. Return to emergency room for any new or worsening symptoms. Critical care attestation.: If time is entered above; I have spent that time in minutes in the direct care of this critically ill patient, excluding procedure time. ED Disposition Clinical Impression: Dental caries, Dental abscess Disposition: [id number] TO HOME OR SELFCARE Is pt being admited?: No Does the pt Need Aspirin: No Condition: Stable Instructions: Dental Abscess Additional Instructions: Please take medication as prescribed. Increase your water intake. Gargle with warm salt water. Follow-up with the dentist. It is very important that you follow-up. Return to emergency room for any new or worsening symptoms. Prescriptions: Naproxen 375 mg PO BID PRN #14 tablet.[address] [email or web address] Reason: pain Chlorhexidine Mouthwash [Peridex] 15 ml MM BID #1 bottle Penicillin Vk [Veetids TAB] 500 mg PO QID 7 Days #56 tablet Referrals: your, dentist [Other] - 2-3 Days Time of Disposition: 02:46 Print Language: GEORGIAN
== END 2020-12-25 02:55 | disposition home or self-care (01) ==
LOC: ED 01:37
DX: K02.9 Dental caries, unspecified (principal); K04.7 Periapical abscess without sinus; M19.90 Unspecified osteoarthritis, unspecified site; G43.909 Migraine, unspecified, not intractable, without status migrainosus; F32.9 Major depressive disorder, single episode, unspecified; Z79.899 Other long term (current) drug therapy; Z88.0 Allergy status to penicillin; Z86.73 Personal history of transient ischemic attack (TIA), and cerebral infarction without residual deficits; Z90.710 Acquired absence of both cervix and uterus; Z90.49 Acquired absence of other specified parts of digestive tract; Z98.890 Other specified postprocedural states
CPT/HCPCS: 99282

== ENCOUNTER 2022-03-09 10:03 | Emergency (ER) | payer SELFPAY ==
[2022-03-10 08:52] VITALS: BP 121/92
--- NOTE | 2022-03-10 09:06 | Emergency Department Report ---
ED General Adult HPI - General Chief complaint: Psych Stated complaint: EMOTIONAL BREAKDOWN Time Seen by Provider: 03/10/22 08:52 Source: patient Mode of arrival: Ambulatory Limitations: No Limitations - History of Present Illness Initial comments: patient presents with complaints of anhedonia and depressed mood x 4 months. states they started after they lost 2 people in their family within 2 weeks of each other. Endorses visual and auditory hallucinations. Denies suicidal and homicidal ideations, intent or plan. Patient is 6/8 on SIGECAPS and only negative for suicidality and psychomotor retardation. Severity scale (0 -10): 0 - Related Data Home Medications Medication Instructions Recorded Confirmed Last Taken Aspirin EC [Halfprin EC] 81 mg PO QDAY 03/01/15 08/10/15 Unknown Previous Rx's Medication Instructions Recorded Last Taken Type Acetaminophen/Codeine [Tylenol #3] 1 tab PO Q6H PRN #20 tab 11/14/15 Unknown Rx Cyclobenzaprine [Flexeril] 10 mg PO TID PRN #20 tablet 11/14/15 Unknown Rx Naproxen [Naprosyn TAB] 500 mg PO BID #30 tablet 11/14/15 Unknown Rx Azithromycin [Zithromax Z-YUMIKO] 250 mg PO QDAY #6 tablet 03/06/16 Unknown Rx Ibuprofen [Motrin] 800 mg PO Q8HR PRN #10 tablet 03/06/16 Unknown Rx Promethazine /Codeine 5 ml PO Q6H PRN #90 ml 03/06/16 Unknown Rx [Phenergan/Codeine 6.25-10 mg/5Ml] Cyclobenzaprine HCl [Flexeril 5 MG 5 mg PO TID #20 tab 05/18/16 Unknown Rx TAB] Ibuprofen [Motrin 800 MG tab] 800 mg PO Q8HR PRN #20 tablet 05/18/16 Unknown Rx Albuterol Mdi (or & Nicu Only) 2 puff IH QID PRN #1 inhalation 08/17/17 Unknown Rx [Proair] levoFLOXacin [Levaquin] 750 mg PO QDAY #7 tablet 08/17/17 Unknown Rx Nitrofurantoin Monohyd/M-Cryst 100 mg PO Q12H 3 Days #6 capsule 09/01/17 Unknown Rx [Macrobid 100 mg Capsule] Azithromycin [Zithromax Z-YUMIKO] 250 mg PO DAILY #6 tablet 05/14/18 Unknown Rx Benzonatate [Tessalon Perle] 100 mg PO Q8H PRN #20 capsule 05/14/18 Unknown Rx Loratadine (Nf) [Claritin] 10 mg PO DAILY #30 tablet 05/14/18 Unknown Rx Ibuprofen [Motrin] 600 mg PO Q8H PRN #20 tablet 08/04/18 Unknown Rx traMADoL [Ultram 50 MG tab] 50 mg PO Q6HR PRN 3 Days #12 tablet 11/18/18 Unknown Rx Bepotastine Besilate [Bepreve 1.5%] 1 drop OU BID #1 drops 12/30/18 Unknown Rx Cetirizine HCl [ZyrTEC] 10 mg PO DAILY #30 tab.rapdis 12/30/18 Unknown Rx Fluticasone [Flonase] 1 spray NS QDAY #1 bottle 12/30/18 Unknown Rx Naproxen [Naprosyn] 500 mg PO BID #20 tablet 03/09/19 Unknown Rx methOCARBAMOL [Robaxin TAB] 500 mg PO Q8HR PRN #20 tablet 03/09/19 Unknown Rx predniSONE [Deltasone] 50 mg PO QDAY #5 tab 03/09/19 Unknown Rx traMADoL [Ultram] 50 mg PO Q6HR PRN #7 tablet 03/09/19 Unknown Rx Ketorolac [Toradol] 10 mg PO Q6H PRN #15 tablet 06/14/19 Unknown Rx methOCARBAMOL [Robaxin] 750 mg PO Q8H PRN #21 tablet 06/14/19 Unknown Rx predniSONE [Deltasone] 50 mg PO QDAY #5 tab 06/14/19 Unknown Rx Doxycycline Hyclate [Doxycycline 100 mg PO BID 7 Days #14 tab 07/19/19 Unknown Rx Hyclate TAB] Mupirocin [Bactroban 2% OINT] 1 applic TP TID #1 tube 07/19/19 Unknown Rx Famotidine [Pepcid] 20 mg PO BID 5 Days #10 tablet 10/11/19 Unknown Rx Hydroxyzine HCl [hydrOXYzine] 50 mg PO Q6H PRN #24 tablet 10/11/19 Unknown Rx Triamcinolone 0.1% [Kenalog 0.1% 1 applic TP BID 10 Days #1 tube 10/11/19 Unknown Rx CREAM] predniSONE [Deltasone] 40 mg PO QDAY 5 Days #10 tab 10/11/19 Unknown Rx Chlorhexidine Mouthwash [Peridex] 15 ml MM BID #1 bottle 12/25/20 Unknown Rx Naproxen 375 mg PO BID PRN #14 tablet. 12/25/20 Unknown Rx Penicillin Vk [Veetids TAB] 500 mg PO QID 7 Days #56 tablet 12/25/20 Unknown Rx Escitalopram [Lexapro] 10 mg PO DAILY #30 tablet 03/10/22 Unknown Rx hydrOXYzine PAMOATE [Vistaril] 25 mg PO BID PRN #60 capsule 03/10/22 Unknown Rx traZODone [Desyrel] 50 mg PO QHS #30 tab 03/10/22 Unknown Rx Allergies Allergy/AdvReac Type Severity Reaction Status Date / Time ampicillin Allergy Itching Verified 05/10/15 20:17 ED Review of Systems ROS: Stated complaint: EMOTIONAL BREAKDOWN Other details as noted in HPI Comment: All other systems reviewed and negative Constitutional: denies: chills, fever ED Past Medical Hx - Past Medical History Hx CVA: Yes (2009- NO RESIDUAL) Hx Congestive Heart Failure: No Hx Diabetes: No Hx Arthritis: Yes Hx Headaches / Migraines: Yes Hx Psychiatric Treatment: Yes (depression) Hx Asthma: No Hx COPD: No Hx HIV: No - Surgical History Hx Appendectomy: Yes Additional Surgical History: hysterectomy, left ankle surgery, left carotid endarterectomy - Social History Smoking Status: Never Smoker Substance Use Type: None - Medications Home Medications: Home Medications Medication Instructions Recorded Confirmed Last Taken Type Aspirin EC [Halfprin EC] 81 mg PO QDAY 03/01/15 08/10/15 Unknown History Acetaminophen/Codeine [Tylenol #3] 1 tab PO Q6H PRN #20 tab 11/14/15 Unknown Rx Cyclobenzaprine [Flexeril] 10 mg PO TID PRN #20 tablet 11/14/15 Unknown Rx Naproxen [Naprosyn TAB] 500 mg PO BID #30 tablet 11/14/15 Unknown Rx Azithromycin [Zithromax Z-YUMIKO] 250 mg PO QDAY #6 tablet 03/06/16 Unknown Rx Ibuprofen [Motrin] 800 mg PO Q8HR PRN #10 tablet 03/06/16 Unknown Rx Promethazine /Codeine 5 ml PO Q6H PRN #90 ml 03/06/16 Unknown Rx [Phenergan/Codeine 6.25-10 mg/5Ml] Cyclobenzaprine HCl [Flexeril 5 MG 5 mg PO TID #20 tab 05/18/16 Unknown Rx TAB] Ibuprofen [Motrin 800 MG tab] 800 mg PO Q8HR PRN #20 tablet 05/18/16 Unknown Rx Albuterol Mdi (or & Nicu Only) 2 puff IH QID PRN #1 inhalation 08/17/17 Unknown Rx [Proair] levoFLOXacin [Levaquin] 750 mg PO QDAY #7 tablet 08/17/17 Unknown Rx Nitrofurantoin Monohyd/M-Cryst 100 mg PO Q12H 3 Days #6 capsule 09/01/17 Unknown Rx [Macrobid 100 mg Capsule] Azithromycin [Zithromax Z-YUMIKO] 250 mg PO DAILY #6 tablet 05/14/18 Unknown Rx Benzonatate [Tessalon Perle] 100 mg PO Q8H PRN #20 capsule 05/14/18 Unknown Rx Loratadine (Nf) [Claritin] 10 mg PO DAILY #30 tablet 05/14/18 Unknown Rx Ibuprofen [Motrin] 600 mg PO Q8H PRN #20 tablet 08/04/18 Unknown Rx traMADoL [Ultram 50 MG tab] 50 mg PO Q6HR PRN 3 Days #12 tablet 11/18/18 Unknown Rx Bepotastine Besilate [Bepreve 1.5%] 1 drop OU BID #1 drops 12/30/18 Unknown Rx Cetirizine HCl [ZyrTEC] 10 mg PO DAILY #30 tab.rapdis 12/30/18 Unknown Rx Fluticasone [Flonase] 1 spray NS QDAY #1 bottle 12/30/18 Unknown Rx Naproxen [Naprosyn] 500 mg PO BID #20 tablet 03/09/19 Unknown Rx methOCARBAMOL [Robaxin TAB] 500 mg PO Q8HR PRN #20 tablet 03/09/19 Unknown Rx predniSONE [Deltasone] 50 mg PO QDAY #5 tab 03/09/19 Unknown Rx traMADoL [Ultram] 50 mg PO Q6HR PRN #7 tablet 03/09/19 Unknown Rx Ketorolac [Toradol] 10 mg PO Q6H PRN #15 tablet 06/14/19 Unknown Rx methOCARBAMOL [Robaxin] 750 mg PO Q8H PRN #21 tablet 06/14/19 Unknown Rx predniSONE [Deltasone] 50 mg PO QDAY #5 tab 06/14/19 Unknown Rx Doxycycline Hyclate [Doxycycline 100 mg PO BID 7 Days #14 tab 07/19/19 Unknown Rx Hyclate TAB] Mupirocin [Bactroban 2% OINT] 1 applic TP TID #1 tube 07/19/19 Unknown Rx Famotidine [Pepcid] 20 mg PO BID 5 Days #10 tablet 10/11/19 Unknown Rx Hydroxyzine HCl [hydrOXYzine] 50 mg PO Q6H PRN #24 tablet 10/11/19 Unknown Rx Triamcinolone 0.1% [Kenalog 0.1% 1 applic TP BID 10 Days #1 tube 10/11/19 Unknown Rx CREAM] predniSONE [Deltasone] 40 mg PO QDAY 5 Days #10 tab 10/11/19 Unknown Rx Chlorhexidine Mouthwash [Peridex] 15 ml MM BID #1 bottle 12/25/20 Unknown Rx Naproxen 375 mg PO BID PRN #14 tablet.dr 12/25/20 Unknown Rx Penicillin Vk [Veetids TAB] 500 mg PO QID 7 Days #56 tablet 12/25/20 Unknown Rx Escitalopram [Lexapro] 10 mg PO DAILY #30 tablet 03/10/22 Unknown Rx hydrOXYzine PAMOATE [Vistaril] 25 mg PO BID PRN #60 capsule 03/10/22 Unknown Rx traZODone [Desyrel] 50 mg PO QHS #30 tab 03/10/22 Unknown Rx ED Physical Exam - General Limitations: No Limitations General appearance: alert, in no apparent distress - Head Head exam: Present: atraumatic, normocephalic - Eye Eye exam: Present: PERRL, EOMI - ENT ENT exam: Present: mucous membranes moist, other (airway patent) - Neck Neck exam: Present: other (supple; no JVD) - Respiratory Respiratory exam: Present: other (good air entry, nml I:E, CTAB, no use of USHA) - Cardiovascular Cardiovascular Exam: Present: regular rate. Absent: rubs, gallop - GI/Abdominal GI/Abdominal exam: Present: soft, normal bowel sounds. Absent: distended, tenderness, guarding - Extremities Exam Extremities exam: Present: full ROM. Absent: tenderness - Back Exam Back exam: Present: full ROM. Absent: tenderness - Neurological Exam Neurological exam: Present: alert, oriented X3, CN II-XII intact. Absent: motor sensory deficit - Psychiatric Psychiatric exam: Present: other (labile affect; no SI or HI; endorses visual and auditory hallucinations) - Skin Skin exam: Present: warm, normal color ED Course Vital Signs 03/09/22 03/10/22 10:47 08:51 Temperature 98.5 F Pulse Rate 98 H 64 Respiratory 16 16 Rate Blood Pressure 128/85 121/92 [Left] O2 Sat by Pulse 96 94 Oximetry ED Medical Decision Making - Lab Data Result diagrams: 03/10/22 09:11 03/10/22 09:11 Laboratory Tests 03/10/22 03/10/22 03/10/22 09:11 09:11 09:11 WBC 6.1 RBC 3.83 Hgb 12.7 Hct 38.1 MCV 100 H MCH 33 H MCHC 33 RDW 14.4 Plt Count 310 Lymph % (Auto) 24.6 [place] % (Auto) 8.4 H Eos % (Auto) 6.0 H Baso % (Auto) 1.2 Lymph # (Auto) 1.5 [place] # (Auto) 0.5 Eos # (Auto) 0.4 Baso # (Auto) 0.1 Seg Neutrophils % 59.8 Seg Neutrophils # 3.6 Sodium 139 Potassium 4.5 Chloride 107.1 H Carbon Dioxide 25 Anion Gap 11 BUN 17 Creatinine 0.5 L Estimated GFR > 60 BUN/Creatinine Ratio 34 Glucose 100 Calcium 8.9 Total Bilirubin < 0.20 AST 19 ALT 12 Alkaline Phosphatase 70 Total Protein 7.0 Albumin 4.3 Albumin/Globulin Ratio 1.6 Salicylates 9.6 Acetaminophen Plasma/Serum Alcohol 03/10/22 03/10/22 09:11 09:11 WBC RBC Hgb Hct MCV MCH MCHC RDW Plt Count Lymph % (Auto) [place] % (Auto) Eos % (Auto) Baso % (Auto) Lymph # (Auto) [place] # (Auto) Eos # (Auto) Baso # (Auto) Seg Neutrophils % Seg Neutrophils # Sodium Potassium Chloride Carbon Dioxide Anion Gap BUN Creatinine Estimated GFR BUN/Creatinine Ratio Glucose Calcium Total Bilirubin AST ALT Alkaline Phosphatase Total Protein Albumin Albumin/Globulin Ratio Salicylates Acetaminophen 5.0 L Plasma/Serum Alcohol < 0.01 - Medical Decision Making Likely 2/2 abnormal grief/bereavement reaction. Patient medically cleared. Will not sign 1013 @ this time untile after mental eval by psych. MH consulted. Will go with their recommendations. Critical care attestation.: If time is entered above; I have spent that time in minutes in the direct care of this critically ill patient, excluding procedure time. ED Disposition Clinical Impression: Anhedonia Disposition: 30 STILL A PATIENT Is pt being admited?: No Does the pt Need Aspirin: No Condition: Stable Additional Instructions: Professional and Agency Contacts To help [facility] (15/04) [place] Crisis Line: Suicide Prevention Line: Crisis Text Line: Text START to 245399 Emergency: 911 Outpatient COMMUNITY Behavioral Health Resources: FERNANDEZ: [facility] [address], [place] [address] [facility] [address] [place] [address] Saturday thru Saturday - 8am - 5pm Call to schedule an assessment for mental health and substance abuse programs [place]: [facility] Address: [address] [place] [address] Saturday thru Saturday- 7am-2pm [facility] Address: [address] [place] [address] Saturday thru Saturday: 8:30AM-5PM Prescriptions: traZODone [Desyrel] 50 mg PO QHS #30 tab Escitalopram [Lexapro] 10 mg PO DAILY #30 tablet hydrOXYzine PAMOATE [Vistaril] 25 mg PO BID PRN #60 capsule PRN Reason: Anxiety Time of Disposition: 10:55 (Patient care transferred to the next ER doctor pending sch evaluation. )
[2022-03-10 09:23] LABS: Basophils # (Auto) 0.1 K/mm3 (0.0-0.1); Basophils % (Auto) 1.2 % (0.0-1.8); Eosinophils # (Auto) 0.4 K/mm3 (0.0-0.4); Hematocrit 38.1 % (30.3-42.9); Hemoglobin 12.7 gm/dl (10.1-14.3); Lymphocytes # (Auto) 1.5 K/mm3 (1.2-5.4); Lymphocytes % (Auto) 24.6 % (13.4-35.0); Mean Corpuscular HGB Conc 33 % (30-34); Mean Corpuscular Volume 100 fl (79-97); Monocytes # (Auto) 0.5 K/mm3 (0.0-0.8); Monocytes % (Auto) 8.4 % (0.0-7.3); Platelet Count 310 K/mm3 (140-440); Red Blood Count 3.83 M/mm3 (3.65-5.03); Red Cell Distribution Width 14.4 % (13.2-15.2)
[2022-03-10 09:42] LABS: Alanine Aminotransferase 12 units/L (7-56); Albumin 4.3 g/dL (3.9-5); Blood Urea Nitrogen 17 mg/dL (7-17); Calcium 8.9 mg/dL (8.4-10.2); Hemolysis Index 3
[2022-03-10 09:46] LABS: BUN/Creatinine Ratio 34
--- NOTE | 2022-03-10 11:36 | Consultation ---
History of Present Illness - Reason for Consult Consult date: 03/10/22 Reason for consult: Depression, stress - History of Present Psychiatric Illness HPI: patient presents with complaints of anhedonia and depressed mood x 4 months. states they started after they lost 2 people in their family within 2 weeks of each other. Endorses visual and auditory hallucinations. Denies suicidal and homicidal ideations, intent or plan. Patient is 6/8 on SIGECAPS and only negative for suicidality and psychomotor retardation. The patient was seen today. She is conversational. She is crying. The patient says she's been dealing with depression since her long-term boyfriend of COVID in September of this month. She says he was also the father of her son. She says she had to take care of him while he was sick. The patient also says the boyfriend's sister two weeks prior to his of COVID as well. She says she's been dealing with a lot of stress since then. The patient says now, the boyfriend's family wants her and her son to leave the house. Although she is tearful, she says she is optimistic and can't go down without a fight. She says "I'm going to show them I'm the bigger person." The patient says "my son and I really don't want to live there anyway because it needs a lot of work and we are tired of the dark paneled ramírez." The patient says she works and has a strong protestant family. She says she really just needed someone to talk to and a good night's sleep because she's been holding things in so long and it gets the best of her sometimes. She says she has a history of depression and bipolar, but doesn't take any medications. The patient denies feeling SI/HI. She says "no, I don't feel like doing anything like that at all. I have my son, and we are going to come out of this thing on top." She denies hallucinations of any kind. The patient denies any illicit drug use. PAST PSYCHIATRIC HISTORY: Diagnoses: depression Suicide attempts or Self-harm behavior: Denies Prior psychiatric hospitalizations: Denies Substance Abuse history: Denies Previous psychiatric medications tried: Denies Outpatient treatment: Denies PAST MEDICAL HISTORY: none reported Family Psychiatric History: None reported or documented SOCIAL HISTORY Marital Status: Single Living Arrangements: with son Employment Status: Employed Access to guns/weapons: Denies Education: History of Abuse: Denies Legal History: Denies REVIEW OF SYSTEMS Constitutional: Negative for weight loss ENT: Negative for stridor Respiratory: Negative for cough or hemoptysis All other systems reviewed and are negative MENTAL STATUS EXAMINATION General Appearance and Behavior: Age appropriate, wearing appropriate clothes, c ooperative, polite with questioning, good eye contact Cooperation: cooperative, irritable, guarded Psychomotor Behavior: Psychomotor normal Mood: Depressed Affect and affective range: congruent with stated mood, tearful Thought Process: Goal directed Thought Content: Reality oriented Speech: Normal volume, Regular rate and rhythm Suicidal Ideation: Denies Homicidal Ideation: Denies Hallucination: Denies Delusions: None elicited Impulse Control: Limited Insight and Judgment: Limited Memory: limited Attention: attentive Orientation: Alert and oriented Diagnoses: Major Depressive Disorder Treatment Plan Vistaril 25mg po BID prn anxiety Lexapro 10mg po daily Trazodone 50mg po qhs Sitter: per primary Medical: Per primary Disposition: Do not Recommend acute psychiatric inpatient treatment The materials research engineer to give the patient all necessary outpatient resources including therapy Will sign off. Thanks Case staffed with Dr. Hull Medications and Allergies Allergies Allergy/AdvReac Type Severity Reaction Status Date / Time ampicillin Allergy Itching Verified 05/10/15 20:17 Home Medications Medication Instructions Recorded Confirmed Last Taken Type Aspirin EC [Halfprin EC] 81 mg PO QDAY 03/01/15 08/10/15 Unknown History Acetaminophen/Codeine [Tylenol #3] 1 tab PO Q6H PRN #20 tab 11/14/15 Unknown Rx Cyclobenzaprine [Flexeril] 10 mg PO TID PRN #20 tablet 11/14/15 Unknown Rx Naproxen [Naprosyn TAB] 500 mg PO BID #30 tablet 11/14/15 Unknown Rx Azithromycin [Zithromax Z-YUMIKO] 250 mg PO QDAY #6 tablet 03/06/16 Unknown Rx Ibuprofen [Motrin] 800 mg PO Q8HR PRN #10 tablet 03/06/16 Unknown Rx Promethazine /Codeine 5 ml PO Q6H PRN #90 ml 03/06/16 Unknown Rx [Phenergan/Codeine 6.25-10 mg/5Ml] Cyclobenzaprine HCl [Flexeril 5 MG 5 mg PO TID #20 tab 05/18/16 Unknown Rx TAB] Ibuprofen [Motrin 800 MG tab] 800 mg PO Q8HR PRN #20 tablet 05/18/16 Unknown Rx Albuterol Mdi (or & Nicu Only) 2 puff IH QID PRN #1 inhalation 08/17/17 Unknown Rx [Proair] levoFLOXacin [Levaquin] 750 mg PO QDAY #7 tablet 08/17/17 Unknown Rx Nitrofurantoin Monohyd/M-Cryst 100 mg PO Q12H 3 Days #6 capsule 09/01/17 Unknown Rx [Macrobid 100 mg Capsule] Azithromycin [Zithromax Z-YUMIKO] 250 mg PO DAILY #6 tablet 05/14/18 Unknown Rx Benzonatate [Tessalon Perle] 100 mg PO Q8H PRN #20 capsule 05/14/18 Unknown Rx Loratadine (Nf) [Claritin] 10 mg PO DAILY #30 tablet 05/14/18 Unknown Rx Ibuprofen [Motrin] 600 mg PO Q8H PRN #20 tablet 08/04/18 Unknown Rx traMADoL [Ultram 50 MG tab] 50 mg PO Q6HR PRN 3 Days #12 tablet 11/18/18 Unknown Rx Bepotastine Besilate [Bepreve 1.5%] 1 drop OU BID #1 drops 12/30/18 Unknown Rx Cetirizine HCl [ZyrTEC] 10 mg PO DAILY #30 tab.rapdis 12/30/18 Unknown Rx Fluticasone [Flonase] 1 spray NS QDAY #1 bottle 12/30/18 Unknown Rx Naproxen [Naprosyn] 500 mg PO BID #20 tablet 03/09/19 Unknown Rx methOCARBAMOL [Robaxin TAB] 500 mg PO Q8HR PRN #20 tablet 03/09/19 Unknown Rx predniSONE [Deltasone] 50 mg PO QDAY #5 tab 03/09/19 Unknown Rx traMADoL [Ultram] 50 mg PO Q6HR PRN #7 tablet 03/09/19 Unknown Rx Ketorolac [Toradol] 10 mg PO Q6H PRN #15 tablet 06/14/19 Unknown Rx methOCARBAMOL [Robaxin] 750 mg PO Q8H PRN #21 tablet 06/14/19 Unknown Rx predniSONE [Deltasone] 50 mg PO QDAY #5 tab 06/14/19 Unknown Rx Doxycycline Hyclate [Doxycycline 100 mg PO BID 7 Days #14 tab 07/19/19 Unknown Rx Hyclate TAB] Mupirocin [Bactroban 2% OINT] 1 applic TP TID #1 tube 07/19/19 Unknown Rx Famotidine [Pepcid] 20 mg PO BID 5 Days #10 tablet 10/11/19 Unknown Rx Hydroxyzine HCl [hydrOXYzine] 50 mg PO Q6H PRN #24 tablet 10/11/19 Unknown Rx Triamcinolone 0.1% [Kenalog 0.1% 1 applic TP BID 10 Days #1 tube 10/11/19 Unknown Rx CREAM] predniSONE [Deltasone] 40 mg PO QDAY 5 Days #10 tab 10/11/19 Unknown Rx Chlorhexidine Mouthwash [Peridex] 15 ml MM BID #1 bottle 12/25/20 Unknown Rx Naproxen 375 mg PO BID PRN #14 tablet. 12/25/20 Unknown Rx Penicillin Vk [Veetids TAB] 500 mg PO QID 7 Days #56 tablet 12/25/20 Unknown Rx Escitalopram [Lexapro] 10 mg PO DAILY #30 tablet 03/10/22 Unknown Rx hydrOXYzine PAMOATE [Vistaril] 25 mg PO BID PRN #60 capsule 03/10/22 Unknown Rx traZODone [Desyrel] 50 mg PO QHS #30 tab 03/10/22 Unknown Rx Mental Status Exam - Vital signs Last Vital Signs Temp 98.5 F 03/09/22 10:47 Pulse 64 03/10/22 08:51 Resp 16 03/10/22 08:51 BP 121/92 03/10/22 08:51 Pulse Ox 94 03/10/22 08:51 Results Result Diagrams: 03/10/22 09:11 03/10/22 09:11 Abnormal lab results 03/10/22 03/10/22 03/10/22 Range/Units 09:11 09:11 09:11 MCV 100 H (79-97) fl MCH 33 H (28-32) pg [place] % (Auto) 8.4 H (0.0-7.3) % Eos % (Auto) 6.0 H (0.0-4.3) % Chloride 107.1 H (98-107) mmol/L Creatinine 0.5 L (0.6-1.2) mg/dL Acetaminophen 5.0 L (10.0-30.0) ug/mL All other labs normal.
--- NOTE | 2022-03-10 12:05 | Event Note ---
Date: 03/10/22 Patient has been cleared by psych she is having no homicidal or suicidal ideation. She has goal-directed behavior I will discharge patient
== END 2022-03-10 13:00 | disposition still patient (30) ==
LOC: ED 10:03
DX: R45.84 Anhedonia (principal); M19.90 Unspecified osteoarthritis, unspecified site; F32.A Depression, unspecified; Z86.73 Personal history of transient ischemic attack (TIA), and cerebral infarction without residual deficits; G43.909 Migraine, unspecified, not intractable, without status migrainosus; Z79.899 Other long term (current) drug therapy; Z91.09 Other allergy status, other than to drugs and biological substances
CPT/HCPCS: 36415; 80053; 80320; 85025; 99283; G0480

== ENCOUNTER 2022-03-28 11:03 | Emergency (ER) | payer SELFPAY ==
[2022-03-28 14:31] LABS: Basophils # (Auto) 0.1 K/mm3 (0.0-0.1); Basophils % (Auto) 1.1 % (0.0-1.8); Eosinophils # (Auto) 0.1 K/mm3 (0.0-0.4); Eosinophils % (Auto) 1.7 % (0.0-4.3); Hematocrit 39.4 % (30.3-42.9); Hemoglobin 13.3 gm/dl (10.1-14.3); Lymphocytes # (Auto) 2.2 K/mm3 (1.2-5.4); Lymphocytes % (Auto) 25.7 % (13.4-35.0); Mean Corpuscular HGB Conc 34 % (30-34); Mean Corpuscular Volume 97 fl (79-97); Monocytes # (Auto) 0.6 K/mm3 (0.0-0.8); Monocytes % (Auto) 6.9 % (0.0-7.3); Platelet Count 545 K/mm3 (140-440); Red Blood Count 4.06 M/mm3 (3.65-5.03); Red Cell Distribution Width 14.5 % (13.2-15.2)
--- NOTE | 2022-03-28 14:44 | XRay Report ---
CHEST 2 VIEWS INDICATION / CLINICAL INFORMATION: Chest Pain. COMPARISON: 08/04/2018 FINDINGS: SUPPORT DEVICES: None. HEART / MEDIASTINUM: No significant abnormality. LUNGS / PLEURA: The lungs are hyperinflated suggesting underlying emphysematous changes. No evidence for pneumonia, pleural effusion or pneumothorax. ADDITIONAL FINDINGS: No significant additional findings. IMPRESSION: 1. No acute findings. Hyperinflated lungs. Signer Name: Lamont Ling Jr, MD Signed: 03/28/2022 2:39 PM Workstation Name: [id number]
[2022-03-28 14:47] LABS: Alanine Aminotransferase 10 units/L (7-56); Albumin 4.6 g/dL (3.9-5); Blood Urea Nitrogen 12 mg/dL (7-17); Calcium 9.6 mg/dL (8.4-10.2); Hemolysis Index 5
[2022-03-28 14:53] LABS: BUN/Creatinine Ratio 24
--- NOTE | 2022-03-28 15:35 | Event Note ---
ED Screening Note ED Screening Note: SEVERE ANXIETY HX CAD CO CP ARGUING WITH SON COMES VIA EMS POS AV JOE NO SI NO HI This initial assessment/diagnostic orders/clinical plan/treatment(s) is/are subject to change based on patients health status, clinical progression and re- assessment by fellow clinical providers in the ED. Further treatment and workup at subsequent clinical providers discretion. Patient/guardian urged not to elope from the ED as their condition may be serious if not clinically assessed and managed. Initial orders include: E
[2022-03-28] MEDS ORDERED: predniSONE 50 MG TAB PO ONE (17:12)
[2022-03-28] MEDS ORDERED: LORazepam 1 MG TAB PO ONE (17:12)
[2022-03-28] MEDS ORDERED: FAMOTIDINE 20 MG TAB PO ONE (17:13)
[2022-03-28] MEDS ORDERED: ACETAMINOPHEN 325 MG TAB PO ONE (17:13)
[2022-03-28 17:15] VITALS: BP 142/81
[2022-03-28 18:28] LABS: Amphetamine Screen,Urine Negative; Benzodiazepines Screen,Urine Negative; Cannabinoid Screen,Urine Negative; Cocaine Screen,Urine Negative; Methadone Screen,Urine Negative; Opiate Screen,Urine Negative
--- NOTE | 2022-03-28 19:06 | Emergency Department Report ---
ED General Adult HPI - General Chief complaint: Anxiety Stated complaint: ANXIETY Source: patient Mode of arrival: Ambulatory Limitations: No Limitations - History of Present Illness Initial comments: Patient is a 61-year-old female with a history of anxiety, depression, migraine headaches, chronic osteoarthritis and chronic pain, and previous CVA who presents to the ED with complaint of acute exacerbation of her chronic pain characterized by bilateral shoulder pain, mid posterior thoracic pain that radiates to the chest diffusely for the last 2 weeks, worse in the last 1 week. Patient states that she has not been able to sleep because of worsening pain. Patient also states that she lost her about 4 months ago and she has found it difficult to cope without him despite taking anxiety and depression medications. Patient denies dizziness, syncope, shortness of breath, abdominal pain, nausea and vomiting, diarrhea, dysuria, urinary frequency and urgency, headache, numbness and tingling or weakness of upper and lower extremities bilaterally, cough or hemoptysis. Patient also denies suicidal or homicidal ideations or hallucinations. MD Complaint: Mid posterior thoracic pain, bilateral shoulder pain, and she has -: week(s) (2) Location: back, upper extremity (Bilateral shoulder pain) Radiation: back (Diffuse mid posterior thoracic pain), extremity (Bilateral shoulder pain) Severity scale (0 -10): 10 Quality: aching, sharp Consistency: constant Improves with: none Worsens with: movement Associated Symptoms: denies other symptoms, weakness. denies: confusion, chest pain, cough, diaphoresis, fever/chills, headaches, malaise, nausea/vomiting, rash, shortness of breath, syncope Treatments Prior to Arrival: none - Related Data Home Medications Medication Instructions Recorded Confirmed Last Taken Aspirin EC [Halfprin EC] 81 mg PO QDAY 03/01/15 08/10/15 Unknown Previous Rx's Medication Instructions Recorded Last Taken Type Bepotastine Besilate [Bepreve 1.5%] 1 drop OU BID #1 drops 12/30/18 Unknown Rx Triamcinolone 0.1% [Kenalog 0.1% 1 applic TP BID 10 Days #1 tube 10/11/19 Unknown Rx CREAM] hydrOXYzine PAMOATE [Vistaril] 25 mg PO BID PRN #60 capsule 03/10/22 Unknown Rx traZODone [Desyrel] 50 mg PO QHS #30 tab 03/10/22 Unknown Rx Hydroxyzine HCl [hydrOXYzine] 50 mg PO Q6H PRN #30 tablet 03/28/22 Unknown Rx Naproxen 375 mg PO Q12H PRN #20 tab 03/28/22 Unknown Rx methOCARBAMOL [Robaxin TAB] 500 mg PO Q8HR PRN #30 tablet 03/28/22 Unknown Rx predniSONE [Deltasone] 40 mg PO QDAY #10 tab 03/28/22 Unknown Rx Allergies Allergy/AdvReac Type Severity Reaction Status Date / Time ampicillin Allergy Itching Verified 03/28/22 11:12 morphine AdvReac Headache Verified 03/28/22 17:19 ED Review of Systems ROS: Stated complaint: ANXIETY Other details as noted in HPI Constitutional: denies: chills, fever Eyes: denies: eye pain, eye discharge, vision change ENT: denies: ear pain, throat pain Respiratory: denies: cough, shortness of breath, wheezing Cardiovascular: denies: chest pain, palpitations Endocrine: no symptoms reported Gastrointestinal: denies: abdominal pain, nausea, vomiting, diarrhea Genitourinary: denies: urgency, dysuria, discharge Musculoskeletal: back pain (Mid posterior thoracic pain), arthralgia (Bilateral shoulder pain). denies: joint swelling Skin: denies: rash, lesions Neurological: denies: headache, weakness, paresthesias Psychiatric: denies: anxiety, depression Hematological/Lymphatic: denies: easy bleeding, easy bruising ED Past Medical Hx - Past Medical History Previous Medical History?: Yes Hx CVA: Yes (2009- NO RESIDUAL) Hx Congestive Heart Failure: No Hx Diabetes: No Hx Arthritis: Yes Hx Headaches / Migraines: Yes Hx Psychiatric Treatment: Yes (depression) Hx Asthma: No Hx COPD: No Hx HIV: No - Surgical History Hx Appendectomy: Yes Additional Surgical History: hysterectomy, left ankle surgery, left carotid endarterectomy - Social History Smoking Status: Current Every Day Smoker Substance Use Type: None - Medications Home Medications: Home Medications Medication Instructions Recorded Confirmed Last Taken Type Aspirin EC [Halfprin EC] 81 mg PO QDAY 03/01/15 08/10/15 Unknown History Bepotastine Besilate [Bepreve 1.5%] 1 drop OU BID #1 drops 12/30/18 Unknown Rx Triamcinolone 0.1% [Kenalog 0.1% 1 applic TP BID 10 Days #1 tube 10/11/19 Unknown Rx CREAM] hydrOXYzine PAMOATE [Vistaril] 25 mg PO BID PRN #60 capsule 03/10/22 Unknown Rx traZODone [Desyrel] 50 mg PO QHS #30 tab 03/10/22 Unknown Rx Hydroxyzine HCl [hydrOXYzine] 50 mg PO Q6H PRN #30 tablet 03/28/22 Unknown Rx Naproxen 375 mg PO Q12H PRN #20 tab 03/28/22 Unknown Rx methOCARBAMOL [Robaxin TAB] 500 mg PO Q8HR PRN #30 tablet 03/28/22 Unknown Rx predniSONE [Deltasone] 40 mg PO QDAY #10 tab 03/28/22 Unknown Rx ED Physical Exam - General Limitations: No Limitations General appearance: alert, in no apparent distress - Head Head exam: Present: atraumatic, normocephalic, normal inspection - Eye Eye exam: Present: normal appearance, PERRL, EOMI Pupils: Present: normal accommodation - ENT ENT exam: Present: normal exam, normal orophraynx, mucous membranes moist, TM's normal bilaterally, normal external ear exam - Neck Neck exam: Present: normal inspection, full ROM. Absent: tenderness - Respiratory Respiratory exam: Present: normal lung sounds bilaterally. Absent: respiratory distress, wheezes, rales, rhonchi, chest wall tenderness, accessory muscle use, decreased breath sounds - Cardiovascular Cardiovascular Exam: Present: normal rhythm, tachycardia, normal heart sounds. Absent: systolic murmur, diastolic murmur, rubs, gallop - GI/Abdominal GI/Abdominal exam: Present: soft, normal bowel sounds. Absent: tenderness, guarding, rebound, hyperactive bowel sounds, hypoactive bowel sounds, organomegaly - Extremities Exam Extremities exam: Present: normal inspection, full ROM, tenderness (Palpable bilateral shoulder tenderness), normal capillary refill. Absent: pedal edema, joint swelling, calf tenderness - Back Exam Back exam: Present: normal inspection, full ROM, tenderness (Palpable mid posterior thoracic paraspinal musculoskeletal tenderness), muscle spasm, paraspinal tenderness. Absent: CVA tenderness (R), CVA tenderness (L), vertebral tenderness - Neurological Exam Neurological exam: Present: alert, oriented X3, CN II-XII intact, normal gait, reflexes normal - Psychiatric Psychiatric exam: Present: anxious, flat affect. Absent: agitated, homicidal ideation, suicidal ideation - Skin Skin exam: Present: warm, dry, intact, normal color. Absent: rash ED Course Vital Signs 03/28/22 03/28/22 11:06 17:12 Temperature 97.4 F L 98.0 F Pulse Rate 108 H 87 Respiratory 18 16 Rate Blood Pressure 142/81 Blood Pressure 146/87 [Left] O2 Sat by Pulse 97 97 Oximetry ED Medical Decision Making - Lab Data Result diagrams: 03/28/22 14:03 03/28/22 14:03 - Radiology Data Radiology results: report reviewed, image reviewed [facility] [address] [place] [address] XRay Report Signed Patient: SAKINA CAZARES MR#: [id number] : 1960 Acct:[id number] Age/Sex: 61 / F ADM Date: 03/28/22 Loc: ED Attending Dr: Ordering Physician: NEETU MELARA Date of Service: 03/28/22 Procedure(s): XR chest routine 2V Accession Number(s): [id number] cc: NEETU MELARA Fluoro Time In Minutes: CHEST 2 VIEWS INDICATION / CLINICAL INFORMATION: Chest Pain. COMPARISON: 08/04/2018 FINDINGS: SUPPORT DEVICES: None. HEART / MEDIASTINUM: No significant abnormality. LUNGS / PLEURA: The lungs are hyperinflated suggesting underlying emphysematous changes. No evidence for pneumonia, pleural effusion or pneumothorax. ADDITIONAL FINDINGS: No significant additional findings. IMPRESSION: 1. No acute findings. Hyperinflated lungs. Signer Name: Lamont Burton Jr, MD Signed: 03/28/2022 2:39 PM Workstation Name: [id number] Transcribed By: TTR Dictated By: LAMONT BURTON JR, MD Electronically Authenticated By: LAMONT BURTON JR, MD Signed Date/Time: 03/28/221438 DD/ 38 TD/TT: - Medical Decision Making This is a 61-year-old female with a history of anxiety, depression, migraine headaches, chronic osteoarthritis and chronic pain, and previous CVA who presents to the ED with complaint of acute exacerbation of her chronic pain characterized by bilateral shoulder pain, mid posterior thoracic pain that radiates to the chest diffusely for the last 2 weeks, worse in the last 1 week. Patient states that she has not been able to sleep because of worsening pain. Patient also states that she lost her about 4 months ago and she has fou nd it difficult to cope without him despite taking anxiety and depression medications. In the ED, patient is alert and oriented x3 and is not in any distress. Patient was treated for pain in the ED and also given medicine for anxiety. Lab test results were reviewed and are all nonactionable. - Differential Diagnosis Muscle strain; osteoarthritis; anxiety; depression; muscle spasm Critical care attestation.: If time is entered above; I have spent that time in minutes in the direct care of this critically ill patient, excluding procedure time. ED Disposition Clinical Impression: Spasm of thoracic back muscle, Chronic osteoarthritis, Chronic pain syndrome, Anxiety with depression Disposition: 01 HOME / SELF CARE / HOMELESS Is pt being admited?: No Does the pt Need Aspirin: No Condition: Stable Instructions: Muscle Cramps and Spasms, [id number], Arthritis, [id number], Generalized Anxiety Disorder, Adult, Osteoarthritis Additional Instructions: All lab test results were reviewed and are all nonactionable. Chest x-ray showed no acute cardiopulmonary abnormalities or pneumonitis. Therefore take medication with food, drink plenty of fluids and follow-up with your primary care physician in 5 to 7 days for reevaluation. Return to the ED immediately if symptoms get worse. Prescriptions: predniSONE [Deltasone] 40 mg PO QDAY #10 tab Hydroxyzine HCl [hydrOXYzine] 50 mg PO Q6H PRN #30 tablet PRN Reason: Itching Naproxen 375 mg PO Q12H PRN #20 tab PRN Reason: Pain , Severe (7-10) methOCARBAMOL [Robaxin TAB] 500 mg PO Q8HR PRN #30 tablet PRN Reason: Muscle Spasm Referrals: [facility] [Provider Group] - 3-5 Days Forms: Work/School Release Form(ED) Time of Disposition: 19:09 Print Language: ARABIC
[2022-03-28 19:54] LABS: Bacteria,Urine 4+ /HPF (Negative); Mucus,Urine FEW /HPF
[2022-03-28 19:58] LABS: Bilirubin,Urine Negative (Negative); Color,Urine Straw (Yellow)
[2022-03-28 19:59] LABS: Blood,Urine Negative (Negative); Protein,Urine <15 mg/dL mg/dL (Negative); Urobilinogen,Urine < 2.0 mg/dL (<2.0)
== END 2022-03-28 20:01 | disposition home or self-care (01) ==
LOC: ED 11:03
DX: M62.830 Muscle spasm of back (principal); M19.90 Unspecified osteoarthritis, unspecified site; G89.4 Chronic pain syndrome; F41.9 Anxiety disorder, unspecified; F32.9 Major depressive disorder, single episode, unspecified; Z86.73 Personal history of transient ischemic attack (TIA), and cerebral infarction without residual deficits; G43.909 Migraine, unspecified, not intractable, without status migrainosus; Z90.710 Acquired absence of both cervix and uterus; Z98.890 Other specified postprocedural states; Z88.0 Allergy status to penicillin; Z88.5 Allergy status to narcotic agent
CPT/HCPCS: 36415; 71046; 80053; 80307; 81001; 84484; 85025; 99284; J7512; 80320; G0480